=== PATIENT | female | born 1950 | race Caucasian/White ===

== ENCOUNTER 2016-09-23 09:26 | Emergency (ER) | payer MEDICARE, OTHER ==
[2016-09-23] MEDS ORDERED: TORAdol 30 mg Injection IM ONE (09:30)
[2016-09-23] MEDS ORDERED: Phenergan 25 MG INJ IM ONE (09:30)
[2016-09-23] MEDS ORDERED: Norflex 60 MG/2 ML IM ONE (09:32)
[2016-09-23] MEDS ORDERED: TORAdol 30 mg Injection ONE (09:38)
[2016-09-23] MEDS ORDERED: Phenergan 25 MG INJ ONE (09:38)
--- NOTE | 2016-09-23 09:38 | ERPHSYRPT ---
- History of Present Illness Time Seen by Provider: 09/23/16 09:30 Source: patient, family Exam Limitations: no limitations Patient Subjective Stated Complaint: PT REPORTS SEVERE BACK PAIN RADIATING DOWN LEFT LEG BEGINNING LAST NIGHT WORSENING WITH TIME-PAIN INCREASES WITH MOVEMENT- DENIES INJURY-PT RECENTLY HAD MEDICAL TESTING WITH LAYING DOWN Triage Nursing Assessment: PT PALE WARM ET [id number] ALL QUESTIONS CORRECTLY-STIFF MOVEMENTS NOTED-NO BRUISING OR ABRASIONS-PT ABLE TO BEAR WT Physician History: patient presents with marked increased lower back pain since yesterday; no falls or trauma; only recent change in activity is that she had an endoscopy procedure and colonoscopy on Friday; no fever; no travel or exposures; no change in BM or voiding or symptoms; pain in lower right back and radiates to right leg to knee; no numbness or weakness or incontinence pain 12/10; no releif with pain meds at home Timing/Duration: today (worse), yesterday (onset), gradual onset, worse Method of Injury: unknown Quality: aching Back Pain Location: lumbar spine (right side), paraspinous muscles Back Pain Radiation: upper legs (right thigh only) Severity of Pain-Max: severe Severity of Pain-Current: severe Modifying Factors: Improves With: immobilization (helps), movement (aggravates) Associated Symptoms: lower back pain, muscle spasms, No fever, No urinary incontinence, No loss of bowel control, No constipation, No vomiting, No problems urinating, No dizziness, No numbness in legs/feet, No weakness, No sensory/motor loss, No tingling in legs/feet Previous symptoms: same symptoms as today (but not as severe), recently seen Allergies/Adverse Reactions: dicloxacillin [Dicloxacillin] Allergy (Mild, Verified 09/23/16 09:32) levofloxacin [From Levaquin] Allergy (Mild, Verified 09/23/16 09:32) Penicillins Allergy (Mild, Verified 09/23/16 09:32) Sulfa (Sulfonamide Antibiotics) Allergy (Mild, Verified 09/23/16 09:32) Home Medications: Alprazolam 1 mg [Xanax 1 mg] 1 mg PO TID 08/21/12 [History] Baclofen 10 mg [Lioresal 10 mg] 10 mg PO TID 08/21/12 [History] Citalopram Hydrobromide [Celexa] 40 mg PO HS 08/21/12 [History] Potassium Chloride 10 Meq Tab* [Klor Con 10 MEQ] 10 meq PO DAILY 08/21/12 [ History] Clopidogrel Bisulfate 75 mg [PLAVIX 75 MG Tablet] 75 mg PO DAILY 09/23/16 [History] Methocarbamol [Robaxin-750] 750 mg PO UD 09/23/16 [History] Metoprolol Tartrate 25 mg [Lopressor 25MG Tab] 25 mg PO BID 09/23/16 [ History] Omeprazole 20 MG [Prilosec 20 mg] 20 mg PO DAILY 09/23/16 [History] Pravastatin Sodium [Pravachol] 80 mg PO HS 09/23/16 [History] Valsartan/Hydrochlorothiazide [Valsartan-Hctz 160-12.5 mg Tab] 1 each PO DAILY 09/23/16 [History] Vit B12/Lmefolate Ca/Vit B6/B2 [Cerefolin Tablet] 1 each PO DAILY 09/23/16 [ History] Hx Tetanus, Diphtheria Vaccination/Date Given: No Hx Influenza Vaccination/Date Given: Yes (2015) Hx Pneumococcal Vaccination/Date Given: Yes (2015) Immunizations Up to Date: Yes - Review of Systems Constitutional: No Symptoms Eyes: No Symptoms Ears, Nose, & Throat: No Symptoms Respiratory: No Cough, No Dyspnea, No Wheezing Cardiac: No Chest Pain, No Palpitations, No Syncope Abdominal/Gastrointestinal: No Abdominal Pain, No Nausea, No Vomiting, No Diarrhea, No Constipation, No Hematemesis, No Melena Genitourinary Symptoms: No Dysuria, No Frequency, No Hematuria, No Incontinence , No Urgency, No Menorrhagia Musculoskeletal: Arthralgias, Back Pain, Neck Pain (chronic old), Myalgias (hx fibromyalgia), No Fall, No Injury Skin: No Symptoms Neurological: Headache (chronic old), No Focal Weakness, No Paralysis, No Parasthesia, No Seizure, No Sensory Changes Psychological: No Symptoms Endocrine: No Symptoms Hematologic/Lymphatic: No Symptoms Immunological/Allergic: No Symptoms - Past Medical History Pertinent Past Medical History: Yes Neurological History: Other ENT History: Cataracts Cardiac History: High Cholesterol, Hypertension, Other Respiratory History: Sleep Apnea Endocrine Medical History: No Pertinent History Musculoskeletal History: Fibromyalgia, Osteoarthritis GI Medical History: No Pertinent History History: No Pertinent History Psycho-Social History: Anxiety, Depression Female Reproductive Disorders: No Pertinent History Other Medical History: HEMFACIAL SPASMS W/ BRAIN SURGERY TO FIX; AORTIC ANEURYSM ; DRY EYE - Past Surgical History Past Surgical History: Yes Neuro Surgical History: No Pertinent History Cardiac: No Pertinent History Respiratory: No Pertinent History Gastrointestinal: Appendectomy, Cholecystectomy Genitourinary: No Pertinent History Musculoskeletal: Other Female Surgical History: Hysterectomy Other Surgical History: EPIDURAL - Social History Smoking Status: Never smoker Exposure to second hand smoke: No Alcohol Use: None Drug Use: none Patient Lives Alone: No Significant Family History: no pertinent family hx - Female History Hx Now: No - Nursing Vital Signs Nursing Vital Signs: Initial Vital Signs Temperature 97.4 F 09/23/16 09:27 Pulse Rate 52 L 09/23/16 09:27 Respiratory Rate 18 09/23/16 09:27 Blood Pressure 119/72 09/23/16 09:27 O2 Sat by Pulse Oximetry 100 09/23/16 09:27 Pain Scale Pain Intensity 8 - Physical Exam General Appearance: severe distress (low back pain), alert, obese Eye Exam: PERRL/EOMI, eyes nml inspection, other (vision ok), No photophobia Ears, Nose, Throat Exam: normal ENT inspection, TMs normal, pharynx normal, moist mucous membranes Neck Exam: normal inspection, non-tender, supple, full range of motion, other ( no audible bruits), No meningismus, No JVD Respiratory Exam: normal breath sounds, lungs clear, airway intact, No chest tenderness, No respiratory distress, No rhonchi, No wheezing Cardiovascular Exam: regular rate/rhythm, normal heart sounds, normal peripheral pulses, bradycardia, capillary refill 2-3 sec, No murmur Gastrointestinal Exam: soft, normal bowel sounds, No tenderness, No mass, No guarding, No pulsatile mass, No rebound, No organomegaly Pelvic Exam: deferred Rectal Exam: deferred Back Exam: normal inspection, decreased range of motion, muscle spasm (right L/ S area), point tenderness (right paraspinous area L1-2), No normal range of motion (decreased due to low back pain), No CVA tenderness, No vertebral tenderness, No rash Extremity Exam: normal inspection, pedal edema (trace non-pitting), other ( reflexes = and normal bilateral lower extremities; sensation = and normal bilateral), No normal range of motion (decreased straigh leg raising on right due to pain at 150), No pelvis stable, No calf tenderness, No parasthesia, No paralysis, No bentley's sign Peripheral Pulses: carotid (R): 4+, carotid (L): 4+, femoral (R): 4+, femoral (L ): 4+, dorsalis-pedis (R): 3+, dorsalis-pedis (L): 3+ Neurologic Exam: alert, oriented x 3, cooperative, 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 tested, normal mood/affect, sensation nml, No nml station & gait (unable to ambulate without assistance due to pain), No motor weakness Skin Exam: normal color, warm, dry, No rash, No petechiae, No cyanosis Lymphatic Exam: No adenopathy SpO2 Interpretation: normal SpO2: 100 Oxygen Delivery: Room Air - Course Nursing assessment & vital signs reviewed: Yes - Radiology Exams L-Spine X-ray Interpretation: Interpreted by me, No Fracture, Other (mild spondylolysis with spondylolisthesis 3-4 mm L4 on L5) Ordered Tests: Active Orders 24 hr Category Date Time Status Re-Check Vital Signs STAT Care 09/23/16 09:30 Active LUMBAR LIMITED (2 OR 3 VIEWS) Stat Exams 09/23/16 09:30 Completed Medication Summary Discontinued Medications Generic Name Dose Route Start Last Admin Trade Name Alanq PRN Reason Stop Dose Admin Ketorolac Tromethamine 60 mg 09/23/16 09:30 09/23/16 10:01 Toradol 30 Mg Injection IM 09/23/16 09:31 60 mg STAT ONE Administration Ketorolac Tromethamine Confirm 09/23/16 09:38 Toradol 30 Mg Injection Administered 09/23/16 09:39 Dose 60 mg .ROUTE .STK-MED ONE Orphenadrine Citrate 60 mg 09/23/16 09:32 09/23/16 10:02 Norflex 60 Mg/2 Ml IM 09/23/16 09:33 60 mg STAT ONE Administration Orphenadrine Citrate Confirm 09/23/16 09:39 Norflex 60 Mg/2 Ml Administered 09/23/16 09:40 Dose 60 mg .ROUTE .STK-MED ONE Promethazine HCl 12.5 mg 09/23/16 09:30 09/23/16 10:01 Phenergan 25 Mg Inj IM 09/23/16 09:31 12.5 mg STAT ONE Administration Promethazine HCl Confirm 09/23/16 09:38 Phenergan 25 Mg Inj Administered 09/23/16 09:39 Dose 25 mg .ROUTE .STK-MED ONE - Progress Progress: improved (after meds), re-examined (after xr and meds) Progress Note: 09/23/16 09:42 family at bedside; treatment plan discussed; meds given; xr pending;will monitor and recheck after xr and meds 09/23/16 10:01 patient returned from XR; no change; will repsoition and give pain meds and recheck; daughter at bedside; L/S xr revealed 3-4 mm ant displacement of L4 on L5 anterior; no old xr for comparison available 09/23/16 10:20 rechecked after meds; pain now 6/10 from a 12/10; family at bedside; will recheck and monitor 09/23/16 10:46 rechecked; family at bedside; much improved; pain now 4/10; discussed follow up and instructions given; discussed home meds and ok 09/23/16 10:48 Counseled pt/family regarding: diagnosis, need for follow-up, rad results - Departure Time of Disposition: 10:47 Departure Disposition: Home Clinical Impression: Back pain at L4-L5 level, Back pain of lumbosacaral region with sciatica Condition: Stable Critical Care Time: No Referrals: NIKOLAY FERRELL [Primary Care Provider] - Instructions: Low Back Pain, Back Pain With Sciatica Additional Instructions: rest neutral position; call LMD for recheck this week; take home meds as directed Follow-up with family doctor as directed. Call for appointment. Return if any problems. If you smoke please stop. Call or follow up with your family doctor for assistance if you need it to stop. Please wear your seatbelt when driving. Have a nice day. Thank you for allowing us to participate in your care today. :o) Dr Justino Tony
[2016-09-23] MEDS ORDERED: Norflex 60 MG/2 ML ONE (09:39)
--- NOTE | 2016-09-23 10:04 | XRAY ---
Indication: Low back pain. No known injury. Comparison: None 3 views of the lumbar spine demonstrates 5 lumbar vertebral segments with mild osteopenia, minimal 4 mm L4 spondylolisthesis without spondylolysis, and bilateral L4-S1 degenerative facet arthropathy. Remaining vertebral body heights and disc spaces maintained. Incidental cholecystectomy clips and pelvic phleboliths. Impression: Nonacute lumbar spine with chronic features.
[2016-09-23 11:35] VITALS: BP 96/55; PULSE 51; O2SAT 98
== END 2016-09-23 11:34 | disposition home or self-care (01) ==
LOC: ED 09:26
DX: M54.5 Low back pain (principal); M54.32 Sciatica, left side
CPT/HCPCS: 72100; 96372; 99284; J1885; J2360; J2550

== ENCOUNTER 2018-03-25 12:23 | Day surgery (SDC) | payer MEDICARE, OTHER ==
[2018-03-25] MEDS ORDERED: Depo-Medrol 40 MG/ML IJ ONE (12:24)
[2018-03-25] MEDS ORDERED: DIPRIVAN 200 MG/20 ML IV ONE (12:24)
[2018-03-25] MEDS ORDERED: Sodium Chloride 0.9(Preservative Free) 10 ML IJ ONE (12:24)
[2018-03-25] MEDS ORDERED: Marcaine 0.5% SDV 10 ML IJ ONE (12:24)
[2018-03-25] MEDS ORDERED: Lactated Ringers 1,000 ML IV ONE (14:33)
--- NOTE | 2018-03-25 14:58 | XRAY ---
Indication: Bilateral SI joint injection. Intraoperative fluoroscopy was provided for 12 seconds. 4 digital spot images submitted for interpretation demonstrates posterior spinal needle tip projecting over the inferior left and right SI joints. Correlate with intraoperative findings/report.
--- NOTE | 2018-03-25 14:58 | XRAY ---
Indication: L4 REYNA. Intraoperative fluoroscopy was provided for 26 seconds. 3 digital spot images submitted for interpretation demonstrates posterior spinal needle tips projecting over the expected course of the left L4 and L5 nerve roots. Small amount of contrast injected for needle tip placement. Correlate with intraoperative findings/report.
--- NOTE | 2018-03-25 15:00 | XRAY ---
26 seconds of fluoroscopy was used in surgery for L4 REYNA.
--- NOTE | 2018-03-25 15:00 | XRAY ---
12 seconds of fluoroscopy was used surgery for bilateral SI joint injection.
== END 2018-03-25 14:49 | disposition home or self-care (01) ==
LOC: SDC-PAIN 12:23
PROVIDERS: ATTEND Psychiatry & Neurology Pain Medicine
DX: M53.3 Sacrococcygeal disorders, not elsewhere classified (principal); M54.16 Radiculopathy, lumbar region
CPT/HCPCS: 27096; 64483; 72020; 72202; 77002; 77003; J1030; J2704; Q9967; G0260

== ENCOUNTER 2018-04-22 09:04 | Day surgery (SDC) | payer MEDICARE, OTHER ==
[2018-04-22] MEDS ORDERED: DIPRIVAN 200 MG/20 ML IV ONE (09:05)
[2018-04-22] MEDS ORDERED: Decadron 4 MG INJ IV ONE (09:05)
[2018-04-22] MEDS ORDERED: Xylocaine 1% Vial 30 ML PF IJ ONE ×2 (09:05)
[2018-04-22] MEDS ORDERED: Xylocaine-Mpf 2% 5 Ml Vial IJ ONE (09:05)
[2018-04-22] MEDS ORDERED: Ketamine HCl 50 MG/ML IV ONE (09:05)
--- NOTE | 2018-04-22 12:09 | XRAY ---
Indication: Right C3-C5 MBB. Intraoperative fluoroscopy was provided for 22 seconds. Single frontal digital spot image submitted for interpretation demonstrates 3 posterior spinal needle tips projecting over the right mid cervical spine, difficult to evaluate the levels. Incidental overlying dental amalgams. Correlate with intraoperative findings/report.
--- NOTE | 2018-04-22 12:11 | XRAY ---
22 seconds fluoroscopy time in surgery for right C3-C5 MBB.
[2018-04-22] MEDS ORDERED: Lactated Ringers 1,000 ML IV ONE (14:29)
== END 2018-04-22 12:00 | disposition home or self-care (01) ==
LOC: SDC-PAIN 09:04
PROVIDERS: ATTEND Psychiatry & Neurology Pain Medicine
DX: M47.812 Spondylosis without myelopathy or radiculopathy, cervical region (principal); I10 Essential (primary) hypertension; Z79.899 Other long term (current) drug therapy
CPT/HCPCS: 64490; 64491; 72020; 77002; 99100; J1100; J2001; J2704

== ENCOUNTER 2018-09-04 09:35 | Inpatient (IN) | payer MEDICARE, OTHER ==
[2018-09-04] MEDS ORDERED: Aplisol ID ONE (12:00)
[2018-09-04] MEDS ORDERED: CALCIUM CARBONATE 1000 MG PO PRN (15:12)
[2018-09-04] MEDS ORDERED: CLARITIN 10 MG PO PRN (15:12)
[2018-09-04] MEDS ORDERED: METHOCARBAMOL PO PRN (15:12)
[2018-09-04] MEDS: Norco 10/325 MG Tablet PO PRN ×2 (15:13→19:28)
[2018-09-04] MEDS ORDERED: Robaxin 500 MG PO PRN (15:19)
[2018-09-04] MEDS ORDERED: MEDICATION INTERVENTION PO SCH (15:30)
--- NOTE | 2018-09-04 17:11 | PCM.HP ---
History of Present Illness - Chief Complaint Chief Complaint: DECONDITIONING R/T TOTAL RIGHT KNEE History of Present Illness: is a 68 year old female pt of mine from [facility] with PMHx OA, goiter, HTN , CAD, hyperlipidemia, aortic aneurysm, fibromyalgia who comes to [facility] with deconditioning, in swing bed, after total knee arthroplasty. Surgery was on her R knee 3d ago wtih Dr. Horowitz. She was at [facility] and had afib during the surgery - pt with no hx afib. Sounds like she was cardioverted there but was hypotensive and was resuscitated with IV fluids. Hgb was 8.8 so is now on iron. Since then she has been doing therapy, has been walking in the erazo with assistance. She is tolerating po but her appetite is decreased. Has not had a BM since surgery. Has been getting stool softeners. vomited up Miralax this morning. Is on Linzesse at home. - Review of Systems Abdominal/Gastrointestinal: Constipation, Appetite Changes Musculoskeletal: Arthralgias, Neck Pain, Joint Redness (this p.m. which was marked on her skin; thinks from the sun), Joint Pain Neurological: Dizziness, Gait Changes Hematologic/Lymphatic: Anemia All Other Systems: Reviewed and Negative Medications & Allergies Home Medications: Home Medication List Alprazolam 1 mg [Xanax 1 mg] 1 mg PO BIDPRN PRN 08/21/12 [History Confirmed 09/04/18] Citalopram Hydrobromide [Celexa] 40 mg PO HS 08/21/12 [History Confirmed ] Potassium Chloride 10 Meq Tab* [Klor Con 10 MEQ] 10 meq PO DAILY 08/21/12 [ History Confirmed 09/04/18] Clopidogrel Bisulfate 75 mg [PLAVIX 75 MG Tablet] 75 mg PO DAILY 09/23/16 [History Confirmed 09/04/18] Methocarbamol [Robaxin-750] 1 - 2 tab PO TIDPRN PRN 09/23/16 [History Confirmed 09/04/18] Omeprazole 20 MG [Prilosec 20 mg] 20 mg PO DAILY 09/23/16 [History Confirmed 07/19] Pravastatin Sodium [Pravachol] 80 mg PO HS 09/23/16 [History Confirmed 09/04/18] Valsartan/Hydrochlorothiazide [Valsartan-Hctz 160-12.5 mg Tab] 1 each PO DAILY 09/23/16 [History Confirmed 09/04/18] Donepezil HCl 10 mg [Aricept 10 MG] 10 mg PO DAILY 08/23/18 [History Confirmed 09/04/18] Fesoterodine Fumarate [Toviaz] 8 mg PO DAILY 08/23/18 [History Confirmed ] Calcium Carbonate 1,000 mg PO TIDPRN PRN 09/04/18 [History Confirmed 09/04/18] Docusate Sodium [Colace] 300 mg PO DAILY 09/04/18 [History Confirmed 09/04/18] Eb-C3 1 tab PO DAILY 09/04/18 [History Confirmed 09/04/18] Ferrous Sulfate 325 mg PO BID 09/04/18 [History Confirmed 09/04/18] Hydrocodone Bit/Acetaminophen [Hydrocodon-Acetaminophn 10-325] 1 each PO Q4HPRN PRN 09/04/18 [History Confirmed 09/04/18] Levothyroxine Sodium 150 Mcg [Synthroid 150 Mcg] 150 mcg PO 0600 09/04/18 [ History Confirmed 09/04/18] Loratadine 10 mg [Claritin 10 mg] 10 mg PO DAILY PRN PRN 09/04/18 [ History Confirmed 09/04/18] Allergies/Adverse Reactions: Allergies Allergy/AdvReac Type Severity Reaction Status Date / Time dicloxacillin [Dicloxacillin] Allergy Mild Verified 09/04/18 14:09 levofloxacin [From Levaquin] Allergy Mild Verified 09/04/18 14:09 Penicillins Allergy Mild Verified 09/04/18 14:09 Sulfa (Sulfonamide Allergy Mild Verified 09/04/18 14:09 Antibiotics) - Past Medical History Past Medical History: Yes Neurological History: Stroke, Other ENT History: Cataracts Cardiac History: High Cholesterol, Hypertension Respiratory History: No Pertinent History Endocrine Medical History: No Pertinent History Musculoskelatal History: Osteoarthritis, Other GI Medical History: GERD, Hernia, Other History: No Pertinent History Pyscho-Social History: Anxiety, Depression Reproductive Disorders: No Pertinent History Comment: Torn mensicus left knee with repair 2006. Brain surgery 2016 for hemifacial spasm. Cholecystectomy 2015, Achilles tendon repair right, heel spur surgery both feet, neuroma removal right foot x 2, total hysterectomy, Stroke 2013 without residual. Also on medication for dementia., esophageal spasms - Female History Are you now?: No - Past Surgical History Past Surgical History: Yes Neuro Surgical History: No Pertinent History Cardiac History: No Pertinent History Respiratory Surgery: No Pertinent History GI Surgical History: Cholecystectomy Genitourinary Surgical Hx: No Pertinent History Musculskeletal Surgical Hx: Joint Replacement, Other Female Surgical History: Hysterectomy Other Surgical History: EPIDURAL, thyroidectomy. Torn mensicus left knee with repair 2006. Brain surgery 2016 for hemifacial spasm. Cholecystectomy 2015, Achilles tendon repair right, heel spur surgery both feet, neuroma removal right foot x 2, total hysterectomy. RIGHT KNEE CYST - Social History Smoking Status: Never smoker Exposure to second hand smoke: No Alcohol: None Drug Use: none Significant Family History: no pertinent family hx - Physical Exam Vital Signs: Vital Signs - 24 hr Temp Pulse Resp BP Pulse Ox 09/04/18 13:20 97.7 F 59 L 16 110/59 92 L General Appearance: no apparent distress, alert Neurologic Exam: oriented x 3, cooperative Eye Exam: eyes nml inspection Ears, Nose, Throat Exam: moist mucous membranes Neck Exam: normal inspection Respiratory Exam: normal breath sounds, lungs clear, No crackles/rales, No rhonchi, No wheezing Cardiovascular Exam: regular rate/rhythm, normal heart sounds, No murmur Gastrointestinal/Abdomen Exam: soft, normal bowel sounds, No tenderness, No distention, No mass, No guarding, No rebound Back Exam: normal inspection, No rash Extremity Exam: other (RLE with clean/dry dressing on anterior knee. No erythema, no lesions. motor intact grossly throughout) Assessment/Plan (1) Physical deconditioning Current Visit: Yes Status: Acute Assessment & Plan: Here for PT Code(s): R53.81 - OTHER MALAISE (2) History of total knee arthroplasty Current Visit: Yes Status: Acute Qualifiers: Laterality: right Qualified Code(s): Z96.651 - Presence of right artificial knee joint Assessment & Plan: POD #3. Code(s): Z96.659 - PRESENCE OF UNSPECIFIED ARTIFICIAL KNEE JOINT (3) Anemia Current Visit: Yes Status: Acute Qualifiers: Anemia type: iron deficiency Iron deficiency anemia type: unspecified iron deficiency Qualified Code(s): D50.9 - Iron deficiency anemia, unspecified Assessment & Plan: recheck in a.m. Hgb 8.8 in hospital per pt report (pt is reliable). Code(s): D64.9 - ANEMIA, UNSPECIFIED (4) Constipation Current Visit: Yes Status: Chronic Qualifiers: Constipation type: slow transit constipation Qualified Code(s): K59.01 - Slow transit constipation Assessment & Plan: try dulcolax suppository in the morning. She can also resume her home linzesse. Code(s): K59.00 - CONSTIPATION, UNSPECIFIED (5) HTN (hypertension) Current Visit: Yes Status: Acute Qualifiers: Hypertension type: essential hypertension Qualified Code(s): I10 - Essential (primary) hypertension Assessment & Plan: With hx aortic aneurism; will continue to monitor. Great so far. Code(s): I10 - ESSENTIAL (PRIMARY) HYPERTENSION
[2018-09-04] MEDS: FEOSOL 325 MG PO SCH (21:09)
[2018-09-04] MEDS: ceLEXa 20 MG PO SCH (21:10)
[2018-09-04] MEDS: ZOCOR 20MG PO SCH (21:11)
[2018-09-04] MEDS: XANAX 1 MG PO PRN (21:17)
[2018-09-04] MEDS ORDERED: NON-FORMULARY ITEM (Pravastatin Sodium [Pravachol] 80 MG) PO SCH (22:00)
[2018-09-04] MEDS ORDERED: NON-FORMULARY ITEM (Citalopram Hydrobromide [Celexa] 40 MG) PO SCH (22:00)
[2018-09-05] MEDS: Norco 10/325 MG Tablet PO PRN ×5 (00:37→20:34)
[2018-09-05 04:46] LABS: Hematocrit 24.1 % (35-47); Hemoglobin 7.6 gm/dl (12.0-16.0); Mean Corpuscular Hgb Concent. 31.5 g/dl (32-36); Mean Platelet Volume 9.6 fl (6-9.5); Platelet Count 169 K/mm3 (150-450); Red Blood Count 2.62 M/mm3 (4.1-5.4); Red Cell Distribution Width 13.4 % (11.5-14.0); White Blood Count 4.1 K/mm3 (4.0-10.5)
[2018-09-05] MEDS: SYNTHROID 150 MCG PO SCH (06:02)
[2018-09-05] MEDS ORDERED: Dulcolax 10 MG SUPP PR PRN (10:00)
[2018-09-05] MEDS ORDERED: NON-FORMULARY ITEM (Omeprazole 20 Mg [Prilosec 20 Mg] 20 MG) PO SCH (10:00)
[2018-09-05] MEDS ORDERED: [UNRECOGNIZED DRUG - OTHER] PO SCH (10:00)
[2018-09-05] MEDS ORDERED: FESOTERODINE FUMARATE 8 MG PO SCH (10:00)
[2018-09-05] MEDS: Colace 100 MG PO SCH (10:07)
[2018-09-05] MEDS: Aricept 10 MG PO SCH (10:07)
[2018-09-05] MEDS: PLAVIX 75 MG Tablet PO SCH (10:08)
[2018-09-05] MEDS: Protonix 40MG Tablet PO SCH (10:08)
[2018-09-05] MEDS: Klor Con 10 MEQ PO SCH (10:08)
[2018-09-05] MEDS: FEOSOL 325 MG PO SCH ×2 (10:08→21:19)
[2018-09-05] MEDS: Ditropan 5 MG PO SCH ×2 (10:08→21:18)
--- NOTE | 2018-09-05 13:11 | PCM.NOTE ---
Date and Time: 09/05/18 1310 Subjective Assessment: patient seen, doing ok - Review of Systems Constitutional: No Fever, No Chills Eyes: No Symptoms Ears, Nose, & Throat: No Symptoms Respiratory: No Cough, No Short Of Breath Cardiac: No Chest Pain, No Edema, No Syncope Abdominal/Gastrointestinal: No Abdominal Pain, No Nausea, No Vomiting, No Diarrhea Genitourinary Symptoms: No Dysuria Musculoskeletal: Joint Pain, No Back Pain, No Neck Pain Skin: No Rash Neurological: No Dizziness, No Focal Weakness, No Sensory Changes Psychological: No Symptoms Endocrine: No Symptoms Hematologic/Lymphatic: No Symptoms Immunological/Allergic: No Symptoms Objective Exam General Appearance: no apparent distress, alert Neurologic Exam: alert, oriented x 3, cooperative, normal mood/affect, nml cerebellar function, sensation nml, No motor deficits Skin Exam: normal color, warm, dry Eye Exam: PERRL, EOMI, eyes nml inspection Ears, Nose, Throat Exam: normal ENT inspection, pharynx normal, moist mucous membranes Neck Exam: normal inspection, non-tender, supple, full range of motion Respiratory Exam: normal breath sounds, lungs clear, No respiratory distress Cardiovascular Exam: regular rate/rhythm, normal heart sounds Gastrointestinal/Abdomen Exam: soft, No tenderness, No mass Extremity Exam: normal inspection, normal range of motion Back Exam: normal inspection, normal range of motion, No CVA tenderness, No vertebral tenderness Pelvic Exam: deferred Rectal Exam: deferred OBJECTIVE DATA Vital Signs: Vital Signs - 24 hr Temp Pulse Resp BP Pulse Ox 09/05/18 07:12 97.6 F 54 L 18 103/53 97 09/04/18 19:56 97.6 F 64 18 101/54 98 09/04/18 13:20 97.7 F 59 L 16 110/59 92 L Pain Assessment - Last Documented Pain Intensity 5 Pain Scale Used 0-10 Pain Scale Intake and Output: Intake & Output 09/03/18 09/04/18 09/05/18 09/06/18 11:59 11:59 11:59 11:59 Intake Total 1840 Balance 1840 Weight 112.9 kg Lab Results: Lab Results-Last 24 Hours 09/05/18 Range/Units 04:44 WBC 4.1 (4.0-10.5) K/mm3 RBC 2.62 L (4.1-5.4) M/mm3 Hgb 7.6 L (12.0-16.0) gm/dl Hct 24.1 L (35-47) % MCV 92.0 (78-100) fl MCH 29.0 (26-32) pg MCHC 31.5 L (32-36) g/dl RDW 13.4 (11.5-14.0) % Plt Count 169 (150-450) K/mm3 MPV 9.6 H (6-9.5) fl Multi-Disciplinary Progress Notes: Multi-Disciplinary Progress Notes 09/04/18 15:18 Pharmacy Note by Jp Navarro Please be aware of possible drug interaction with Celexa and Aricept. May prolong QT interval. Both are home meds. Initialized on 09/04/18 15:18 - END OF NOTE Assessment/Plan (1) Physical deconditioning Current Visit: Yes Status: Acute Assessment & Plan: Last Vital Signs Temp 97.6 F 09/05/18 07:12 Pulse 54 L 09/05/18 07:12 Resp 18 09/05/18 07:12 BP 103/53 09/05/18 07:12 Pulse Ox 97 09/05/18 07:12 Allergies dicloxacillin [Dicloxacillin] Allergy (Mild, Verified 09/04/18 14:09) levofloxacin [From Levaquin] Allergy (Mild, Verified 09/04/18 14:09) Penicillins Allergy (Mild, Verified 09/04/18 14:09) Sulfa (Sulfonamide Antibiotics) Allergy (Mild, Verified 09/04/18 14:09) Active Medications Hydrocodone Bitart/Acetaminophen ([place] 10/325 Mg Tablet) 1 tab PO Q4H PRN PRN PRN Reason: PAIN Stop: 09/09/18 15:08 Last Admin: 09/05/18 11:44 Dose: 1 tab Alprazolam (Xanax 1 Mg) 1 mg PO BIDPRN PRN PRN Reason: ANXIETY Stop: 10/04/18 15:11 Last Admin: 09/04/18 21:17 Dose: 1 mg Bisacodyl (Dulcolax 10 Mg Supp) 10 mg OK QDP PRN PRN Reason: CONSTIPATION Stop: 10/05/18 09:59 Calcium Carbonate/Glycine (Tums Ex 750 Mg) 750 mg PO TID PRN PRN PRN Reason: INDIGESTION Stop: 10/04/18 15:20 Citalopram Hydrobromide (Celexa 20 Mg) 40 mg PO HS TIANA Stop: 10/04/18 21:59 Last Admin: 09/04/18 21:10 Dose: 40 mg Clopidogrel Bisulfate (Plavix 75 Mg Tablet) 75 mg PO DAILY TIANA Stop: 10/05/18 09:59 Last Admin: 09/05/18 10:08 Dose: 75 mg Docusate Sodium (Colace 100 Mg) 300 mg PO DAILY TIANA Stop: 10/05/18 09:59 Last Admin: 09/05/18 10:07 Dose: 300 mg Donepezil HCl (Aricept 10 Mg) 10 mg PO DAILY TIANA Stop: 10/05/18 09:59 Last Admin: 09/05/18 10:07 Dose: 10 mg Ferrous Sulfate (Feosol 325 Mg) 325 mg PO BID TIANA Stop: 10/04/18 21:59 Last Admin: 09/05/18 10:08 Dose: 325 mg Levothyroxine Sodium (Synthroid 150 Mcg) 150 mcg PO 0600 TIANA Stop: 10/05/18 05:59 Last Admin: 09/05/18 06:02 Dose: 150 mcg Loratadine (Claritin 10 Mg) 10 mg PO DAILY PRN PRN PRN Reason: ALLERGIES Stop: 10/04/18 15:11 Methocarbamol (Robaxin 500 Mg) 0 mg PO TID PRN PRN PRN Reason: PAIN Stop: 10/04/18 15:18 Miscellaneous Information (Medication Intervention) 1 each PO .RN TO CHECK ON TIANA Stop: 10/04/18 15:29 Oxybutynin Chloride (Ditropan 5 Mg) 5 mg PO BID TIANA Stop: 10/05/18 09:59 Last Admin: 09/05/18 10:08 Dose: 5 mg Pantoprazole Sodium (Protonix 40mg Tablet) 40 mg PO DAILY TIANA Stop: 10/05/18 09:59 Last Admin: 09/05/18 10:08 Dose: 40 mg Potassium Chloride (Klor Con 10 Meq) 10 meq PO DAILY TIANA Stop: 10/05/18 09:59 Last Admin: 09/05/18 10:08 Dose: 10 meq Simvastatin (Zocor 20mg) 80 mg PO HS TIANA Stop: 10/04/18 21:59 Last Admin: 09/04/18 21:11 Dose: 80 mg Intake & Output 09/05/18 09/06/18 11:59 11:59 Intake Total 1840 Balance 1840 Weight 112.9 kg Lab Tests 09/05/18 04:44 WBC 4.1 RBC 2.62 L Hgb 7.6 L Hct 24.1 L MCV 92.0 MCH 29.0 MCHC 31.5 L RDW 13.4 Plt Count 169 MPV 9.6 H Code(s): R53.81 - OTHER MALAISE (2) History of total knee arthroplasty Current Visit: Yes Status: Acute Qualifiers: Laterality: right Qualified Code(s): Z96.651 - Presence of right artificial knee joint Code(s): Z96.659 - PRESENCE OF UNSPECIFIED ARTIFICIAL KNEE JOINT (3) HTN (hypertension) Current Visit: Yes Status: Acute Qualifiers: Hypertension type: essential hypertension Qualified Code(s): I10 - Essential (primary) hypertension Code(s): I10 - ESSENTIAL (PRIMARY) HYPERTENSION
[2018-09-05] MEDS: ceLEXa 20 MG PO SCH (21:18)
[2018-09-05] MEDS: ZOCOR 20MG PO SCH (21:19)
[2018-09-05] MEDS: XANAX 1 MG PO PRN (21:21)
[2018-09-06] MEDS: Norco 10/325 MG Tablet PO PRN ×5 (01:27→20:14)
[2018-09-06 04:52] LABS: Hematocrit 25.2 % (35-47); Hemoglobin 7.8 gm/dl (12.0-16.0); Mean Cell Volume 92.3 fl (78-100); Mean Platelet Volume 9.6 fl (6-9.5); Platelet Count 192 K/mm3 (150-450); Red Blood Count 2.73 M/mm3 (4.1-5.4); Red Cell Distribution Width 13.5 % (11.5-14.0); White Blood Count 4.2 K/mm3 (4.0-10.5)
[2018-09-06 04:55] LABS: Mean Corpuscular Hemoglobin 28.5 pg (26-32)
[2018-09-06] MEDS: SYNTHROID 150 MCG PO SCH (06:47)
[2018-09-06] MEDS: Aricept 10 MG PO SCH (09:24)
[2018-09-06] MEDS: Colace 100 MG PO SCH (09:24)
[2018-09-06] MEDS: Ditropan 5 MG PO SCH ×2 (09:25→21:10)
[2018-09-06] MEDS: FEOSOL 325 MG PO SCH ×2 (09:25→21:10)
[2018-09-06] MEDS: PLAVIX 75 MG Tablet PO SCH (09:25)
[2018-09-06] MEDS: Klor Con 10 MEQ PO SCH (09:25)
[2018-09-06] MEDS: Protonix 40MG Tablet PO SCH (09:26)
[2018-09-06] MEDS: ZOCOR 20MG PO SCH (21:10)
[2018-09-06] MEDS: XANAX 1 MG PO PRN (21:11)
[2018-09-06] MEDS: ceLEXa 20 MG PO SCH (21:11)
[2018-09-07] MEDS: Norco 10/325 MG Tablet PO PRN ×5 (01:00→19:29)
[2018-09-07] MEDS: SYNTHROID 150 MCG PO SCH (06:11)
[2018-09-07 07:55] LABS: Hematocrit 30.1 % (35-47); Hemoglobin 9.4 gm/dl (12.0-16.0); Mean Cell Volume 91.8 fl (78-100); Mean Corpuscular Hgb Concent. 31.2 g/dl (32-36); Mean Platelet Volume 9.7 fl (6-9.5); Platelet Count 268 K/mm3 (150-450); Red Blood Count 3.28 M/mm3 (4.1-5.4); White Blood Count 5.5 K/mm3 (4.0-10.5)
[2018-09-07 08:03] LABS: Mean Corpuscular Hemoglobin 28.6 pg (26-32)
[2018-09-07 08:29] LABS: BAND 1 % (0.0-2.0); Eosinophil 7 % (0.00-3.0); Lymphocytes 22 % (24-44); Monocyte 3 % (0.0-12.0); Neutrophils 67 % (36.0-66.0); Nucleated Red Blood Cell 4 %; Total Cells Counted 100
[2018-09-07 08:30] LABS: ANISOCYTOSIS 1+; Platelet Estimate NORMAL (NORMAL); Toxic Granulation 1+
[2018-09-07] MEDS ORDERED: DIFLUCAN PO SCH (09:00)
[2018-09-07] MEDS: Colace 100 MG PO SCH (09:01)
[2018-09-07] MEDS: PLAVIX 75 MG Tablet PO SCH (09:02)
[2018-09-07] MEDS: Klor Con 10 MEQ PO SCH (09:02)
[2018-09-07] MEDS: Aricept 10 MG PO SCH (09:02)
[2018-09-07] MEDS: Protonix 40MG Tablet PO SCH (09:02)
[2018-09-07] MEDS: Ditropan 5 MG PO SCH ×2 (09:02→20:37)
[2018-09-07] MEDS: FEOSOL 325 MG PO SCH ×2 (09:02→20:37)
[2018-09-07 10:21] LABS: Appearance CLEAR (CLEAR); Bilirubin NEGATIVE (NEGATIVE); Blood NEGATIVE Ery/ul (0-5); Epithelial Cells RARE /HPF (FEW); Glucose NEGATIVE (NEGATIVE); Ketones NEGATIVE (NEGATIVE); Leukocyte Esterase NEGATIVE (NEGATIVE); Mucus SLIGHT /HPF (NEGATIVE); Nitrite NEGATIVE (NEGATIVE); Protein,Urine Dip NEGATIVE (Negative); RBC 0-2 /HPF (0-2); Specific Gravity 1.014 (1.005-1.025); Urobilinogen NEGATIVE mg/dL (0-1)
[2018-09-07] MEDS: ceLEXa 20 MG PO SCH (20:37)
[2018-09-07] MEDS: ZOCOR 20MG PO SCH (20:37)
[2018-09-07] MEDS: XANAX 1 MG PO PRN (20:40)
[2018-09-08] MEDS: Norco 10/325 MG Tablet PO PRN ×5 (02:02→20:10)
[2018-09-08] MEDS: SYNTHROID 150 MCG PO SCH (06:04)
[2018-09-08] MEDS: Aricept 10 MG PO SCH (09:28)
[2018-09-08] MEDS: FEOSOL 325 MG PO SCH ×2 (09:29→21:04)
[2018-09-08] MEDS: Klor Con 10 MEQ PO SCH (09:29)
[2018-09-08] MEDS: Colace 100 MG PO SCH (09:29)
[2018-09-08] MEDS: PLAVIX 75 MG Tablet PO SCH (09:29)
[2018-09-08] MEDS: Ditropan 5 MG PO SCH ×2 (09:29→21:05)
[2018-09-08] MEDS: Protonix 40MG Tablet PO SCH (09:30)
[2018-09-08] MEDS: ZOCOR 20MG PO SCH (21:04)
[2018-09-08] MEDS: ceLEXa 20 MG PO SCH (21:05)
[2018-09-08] MEDS: XANAX 1 MG PO PRN (21:06)
[2018-09-09] MEDS: Norco 10/325 MG Tablet PO PRN ×4 (02:07→21:58)
[2018-09-09] MEDS: SYNTHROID 150 MCG PO SCH (06:52)
[2018-09-09] MEDS: Colace 100 MG PO SCH (08:29)
[2018-09-09] MEDS: Aricept 10 MG PO SCH (08:29)
[2018-09-09] MEDS: FEOSOL 325 MG PO SCH ×2 (08:30→22:00)
[2018-09-09] MEDS: Ditropan 5 MG PO SCH ×2 (08:30→21:59)
[2018-09-09] MEDS: Protonix 40MG Tablet PO SCH (08:30)
[2018-09-09] MEDS: PLAVIX 75 MG Tablet PO SCH (08:30)
[2018-09-09] MEDS: Klor Con 10 MEQ PO SCH (08:30)
--- NOTE | 2018-09-09 08:58 | PCM.NOTE ---
Date and Time: 09/09/18 0856 Subjective Assessment: She is doing well with therapy, thinks she may want to go home tomorrow. Madyson po. Having good BMs. Objective Exam General Appearance: no apparent distress, alert, obese Neurologic Exam: oriented x 3, cooperative Skin Exam: normal color, warm, dry, No rash Respiratory Exam: normal breath sounds, lungs clear, No crackles/rales, No rhonchi, No wheezing Cardiovascular Exam: regular rate/rhythm, normal heart sounds, No murmur Gastrointestinal/Abdomen Exam: soft, normal bowel sounds, No tenderness, No distention, No mass, No guarding, No rebound Extremity Exam: other (dressing on R knee with some evidence of dried blood), No swelling OBJECTIVE DATA Vital Signs: Vital Signs - 24 hr Temp Pulse Resp BP Pulse Ox 09/09/18 07:08 97.4 F 67 20 136/63 97 09/08/18 20:00 97.9 F 62 18 111/52 94 L Pain Assessment - Last Documented Pain Intensity 4 Pain Scale Used 0-10 Pain Scale Intake and Output: Intake & Output 09/06/18 09/07/18 09/08/18 09/09/18 11:59 11:59 11:59 11:59 Intake Total 5447 610 7765 900 Balance 5510 279 1450 900 Weight 112.9 kg Assessment/Plan (1) Physical deconditioning Current Visit: Yes Status: Acute Assessment & Plan: much better. home tomorrow. Code(s): R53.81 - OTHER MALAISE (2) History of total knee arthroplasty Current Visit: Yes Status: Acute Qualifiers: Laterality: right Qualified Code(s): Z96.651 - Presence of right artificial knee joint Assessment & Plan: doing great. sees ortho in 2d. Code(s): Z96.659 - PRESENCE OF UNSPECIFIED ARTIFICIAL KNEE JOINT (3) Anemia Current Visit: Yes Status: Acute Qualifiers: Anemia type: iron deficiency Iron deficiency anemia type: unspecified iron deficiency Qualified Code(s): D50.9 - Iron deficiency anemia, unspecified Assessment & Plan: improved; hgb 2d ago was 9.4. Code(s): D64.9 - ANEMIA, UNSPECIFIED (4) Constipation Current Visit: Yes Status: Resolved Qualifiers: Constipation type: slow transit constipation Qualified Code(s): K59.01 - Slow transit constipation Code(s): K59.00 - CONSTIPATION, UNSPECIFIED (5) HTN (hypertension) Current Visit: Yes Status: Chronic Qualifiers: Hypertension type: essential hypertension Qualified Code(s): I10 - Essential (primary) hypertension Code(s): I10 - ESSENTIAL (PRIMARY) HYPERTENSION
[2018-09-09] MEDS: Tums EX 750 MG PO PRN ×2 (10:32→20:42)
[2018-09-09] MEDS: ZOCOR 20MG PO SCH (21:59)
[2018-09-09] MEDS: ceLEXa 20 MG PO SCH (21:59)
[2018-09-09] MEDS: XANAX 1 MG PO PRN (22:00)
[2018-09-10] MEDS: Norco 10/325 MG Tablet PO PRN ×2 (03:55→09:04)
[2018-09-10] MEDS: SYNTHROID 150 MCG PO SCH (05:34)
[2018-09-10 06:52] VITALS: BP 132/63; PULSE 51; O2SAT 99
--- NOTE | 2018-09-10 08:18 | PCM.DS ---
Discharge Summary Date of Admission: 09/04/18 13:05 Admitting Physician: NIKOLAY FERRELL Primary Care Provider: NIKOLAY FERRELL Allergies Allergies dicloxacillin [Dicloxacillin] Allergy (Mild, Verified 09/04/18 14:09) levofloxacin [From Levaquin] Allergy (Mild, Verified 09/04/18 14:09) Penicillins Allergy (Mild, Verified 09/04/18 14:09) Sulfa (Sulfonamide Antibiotics) Allergy (Mild, Verified 09/04/18 14:09) Hospital Summary - Hospital Course Hospital Course: Pt is a 68 female pt of mine from [facility] with OA, HTN, CAD, hyperlipidemia, goiter , aortic aneurism, and fibromyalgia who came to [facility] on POD #3 s/p total knee arthroplasty on the R (by Dr. Horowitz). Her hgb had been 8.8 at [facility] and here got down to 7.6. She did not require a transfusion. On recheck hgb was 9.4. She has not had any symptomatic bleeding. She did have some constipation which has resolved. She has been tolerating well. Doing well in therapy. She has been taking norco q4h while awake. Would like to go home today; is up out of bed and walking on her own. Will discharge her to home. She has a f/u appt with Dr. Horowitz tomorrow. Will send her home on po norco, just a short script until she sees Dr. Horowitz, although I a happy to write a longer rx if he would prefer not to. - Vitals & Intake/Output Vital Signs: Vital Signs Temperature 98.2 F 09/10/18 06:51 Pulse Rate 51 L 09/10/18 06:51 Respiratory Rate 20 09/10/18 06:51 Blood Pressure 132/63 09/10/18 06:51 O2 Sat by Pulse Oximetry 99 09/10/18 06:51 Intake & Output: Intake & Output 09/07/18 09/08/18 09/09/18 09/10/18 11:59 11:59 11:59 11:59 Intake Total 100 1240 1140 720 Balance 100 1240 1140 720 - Lab Result Diagrams: 09/07/18 07:40 - Procedures and Test Procedures and Tests throughout Hospitalization: Therapy Orders & Screens 09/04/18 12:00 PT Eval & Treat (MD Order) ROUTINE Reason for Eval:: TOTAL R KNEE REPLACEMENT Diagnosis: DECONDITIONING R/T TOTAL R KNEE REPLACEMENT 09/04/18 13:52 OT Screen per Nursing Assess Comment: Protocol Order Physician Instructions: Greater than 3 points order OT Admission Screening Reason For Exam: Triggered on Admission Diagnosis: DECONDITIONING R/T TOTAL RIGHT KNEE Open Wound/Cellutlitis/Pressure Ulcers: No Acute Fx/ORIF/Change in wt bearing status: No Severe MUSCULOSKELETAL pain: No ADL Dysfunction: No Acute CVA w/Hemiparesis/Hemiplegia: No Decreased Functional Mobility/Strength: Yes Sprain/Strain: No Acute Post-op Mobility Dysfunction: Yes Total Points: 4 PT Screen per Nursing Assess Comment: Protocol Order Physician Instructions: Greater than 3 points order PT Admission Screenin Reason For Exam: Triggered on Admission Diagnosis: DECONDITIONING R/T TOTAL RIGHT KNEE Open Wound/Cellutlitis/Pressure Ulcers: No Acute Fx/ORIF/Change in wt bearing status: No Severe MUSCULOSKELETAL pain: No ADL Dysfunction: No Acute CVA w/Hemiparesis/Hemiplegia: No Decreased Functional Mobility/Strength: Yes Sprain/Strain: No Acute Post-op Mobility Dysfunction: Yes Total Points: 4 Discharge Exam General Appearance: no apparent distress, alert, obese Neurologic Exam: oriented x 3, cooperative Eye Exam: eyes nml inspection Ears, Nose, Throat Exam: moist mucous membranes Neck Exam: normal inspection Respiratory Exam: normal breath sounds, lungs clear, No crackles/rales, No rhonchi, No wheezing Cardiovascular Exam: regular rate/rhythm, normal heart sounds, No murmur Extremity Exam: other (RLE dressing with no new bleeding noted. RLE with some generalized edema, no pitting, no erythema.) Final Diagnosis/Problem List - Final Discharge Diagnosis/Problem (1) Physical deconditioning Current Visit: Yes Status: Acute Assessment & Plan: Much improved - will send her home. she should continue her therapy. Code(s): R53.81 - OTHER MALAISE (2) History of total knee arthroplasty Current Visit: Yes Status: Acute Assessment & Plan: Doing great. INSPECT is appropriate today; she did fill a xanax rx in August 2018 , appears to use it irregularly, will warn her not to use with the norco and will use norco the shortest possible time. Code(s): Z96.659 - PRESENCE OF UNSPECIFIED ARTIFICIAL KNEE JOINT (3) Anemia Current Visit: Yes Status: Acute Assessment & Plan: much improved. will check outpatient when she returns to clinic. Code(s): D64.9 - ANEMIA, UNSPECIFIED (4) Constipation Current Visit: Yes Status: Resolved Code(s): K59.00 - CONSTIPATION, UNSPECIFIED (5) HTN (hypertension) Current Visit: Yes Status: Chronic Code(s): I10 - ESSENTIAL (PRIMARY) HYPERTENSION - Discharge Disposition: Home, Self-Care Condition: Good Prescriptions: Continue Alprazolam 1 mg [Xanax 1 mg] 1 mg PO BIDPRN PRN PRN Reason: ANXIETY Potassium Chloride 10 Meq Tab* [Klor Con 10 MEQ] 10 meq PO DAILY Citalopram Hydrobromide [Celexa] 40 mg PO HS Omeprazole 20 MG [Prilosec 20 mg] 20 mg PO DAILY Pravastatin Sodium [Pravachol] 80 mg PO HS Clopidogrel Bisulfate 75 mg [PLAVIX 75 MG Tablet] 75 mg PO DAILY Methocarbamol [Robaxin-750] 1 - 2 tab PO TIDPRN PRN PRN Reason: Pain Valsartan/Hydrochlorothiazide [Valsartan-Hctz 160-12.5 mg Tab] 1 each PO DAILY Donepezil HCl 10 mg [Aricept 10 MG] 10 mg PO DAILY Fesoterodine Fumarate [Toviaz] 8 mg PO DAILY Loratadine 10 mg [Claritin 10 mg] 10 mg PO DAILY PRN PRN PRN Reason: Allergies Levothyroxine Sodium 150 Mcg [Synthroid 150 Mcg] 150 mcg PO 0600 Docusate Sodium [Colace] 300 mg PO DAILY Calcium Carbonate 1,000 mg PO TIDPRN PRN PRN Reason: Indigestion Ferrous Sulfate 325 mg PO BID Eb-C3 1 tab PO DAILY Hydrocodone Bit/Acetaminophen [Hydrocodon-Acetaminophn 10-325] 1 each PO Q4HPRN PRN #12 tablet PRN Reason: Pain Additional Instructions: DO NOT take xanax and norco within several hours of each other due to risk of respiratory depression. Only take norco when needed. Follow up with: NIKOLAY FERRELL [Primary Care Provider] - 1 Week
[2018-09-10] MEDS: Aricept 10 MG PO SCH (09:05)
[2018-09-10] MEDS: Ditropan 5 MG PO SCH (09:05)
[2018-09-10] MEDS: Klor Con 10 MEQ PO SCH (09:05)
[2018-09-10] MEDS: Colace 100 MG PO SCH (09:05)
[2018-09-10] MEDS: PLAVIX 75 MG Tablet PO SCH (09:05)
[2018-09-10] MEDS: Protonix 40MG Tablet PO SCH (09:06)
[2018-09-10] MEDS: FEOSOL 325 MG PO SCH (09:06)
== END 2018-09-10 09:35 | disposition home or self-care (01) | DRG 561 ==
LOC: MED SURG 13:05
PROVIDERS: ADMIT Family Medicine; ATTEND Family Medicine
DX: Z47.1 Aftercare following joint replacement surgery (principal); Z96.651 Presence of right artificial knee joint; R53.81 Other malaise; D64.9 Anemia, unspecified; K59.00 Constipation, unspecified; I10 Essential (primary) hypertension; I25.10 Atherosclerotic heart disease of native coronary artery without angina pectoris; E78.5 Hyperlipidemia, unspecified; M79.7 Fibromyalgia; M54.2 Cervicalgia; R42 Dizziness and giddiness; Z79.01 Long term (current) use of anticoagulants; Z79.899 Other long term (current) drug therapy
CPT/HCPCS: 36415; 81001; 82270; 85025; 85027; 97110-GP; A9270-GY

== ENCOUNTER 2020-05-31 07:36 | Day surgery (SDC) | payer MEDICARE, OTHER ==
[2020-05-31] MEDS ORDERED: BUPIVACAINE 0.5% VIAL IJ ONE (07:37)
[2020-05-31] MEDS ORDERED: Depo-Medrol 40 MG/ML IM ONE (07:37)
[2020-05-31] MEDS ORDERED: Ketamine HCl 50 MG/ML ONE (08:21)
[2020-05-31] MEDS ORDERED: DIPRIVAN 200 MG/20 ML IV ONE (08:21)
--- NOTE | 2020-05-31 09:11 | XRAY ---
Indication: Bilateral SI joint injection. Intraoperative fluoroscopy provided for 17 seconds. 4 digital spot images submitted for interpretation demonstrates posterior needle tip projecting over the inferior left and right SI joint. Correlate with intraoperative findings/report.
--- NOTE | 2020-05-31 09:11 | XRAY ---
17 seconds fluoroscopy time in surgery for bilateral injections of the SI joints.
[2020-05-31] MEDS ORDERED: Lactated Ringers 1,000 ML IV ONE (14:31)
== END 2020-05-31 08:59 | disposition home or self-care (01) ==
LOC: SDC-PAIN 07:36
PROVIDERS: ATTEND Psychiatry & Neurology Pain Medicine
DX: M46.1 Sacroiliitis, not elsewhere classified (principal); I10 Essential (primary) hypertension; M79.7 Fibromyalgia; K21.9 Gastro-esophageal reflux disease without esophagitis; Z86.73 Personal history of transient ischemic attack (TIA), and cerebral infarction without residual deficits; Z79.899 Other long term (current) drug therapy; Z79.01 Long term (current) use of anticoagulants
CPT/HCPCS: 27096; 72202; 77002; G0260; 99100; J1030; J2704

== ENCOUNTER 2020-07-05 10:24 | Day surgery (SDC) | payer MEDICARE, OTHER ==
[2020-07-05] MEDS ORDERED: Decadron 4 MG INJ IV ONE (10:25)
[2020-07-05] MEDS ORDERED: BUPIVACAINE 0.5% VIAL IJ ONE (10:25)
--- NOTE | 2020-07-05 13:26 | XRAY ---
Indication: Right C3-C4 MBB. Intraoperative fluoroscopy provided for 25 seconds. 2 digital spot images submitted for interpretation demonstrates posterior needle tips projecting over the expected right C3-C5 nerve roots. Correlate with intraoperative findings/report.
--- NOTE | 2020-07-05 13:38 | XRAY ---
25 seconds fluoroscopy time in surgery for right C3-C5 MBB.
[2020-07-05] MEDS ORDERED: Lactated Ringers 1,000 ML IV ONE (16:04)
== END 2020-07-05 12:37 | disposition home or self-care (01) ==
LOC: SDC-PAIN 10:24
PROVIDERS: ATTEND Psychiatry & Neurology Pain Medicine
DX: M47.812 Spondylosis without myelopathy or radiculopathy, cervical region (principal); M79.7 Fibromyalgia; I10 Essential (primary) hypertension; K21.9 Gastro-esophageal reflux disease without esophagitis; Z79.899 Other long term (current) drug therapy
CPT/HCPCS: 72040; 77002; J1100

== ENCOUNTER 2020-08-02 11:31 | Day surgery (SDC) | payer MEDICARE, OTHER ==
[2020-08-02] MEDS ORDERED: BUPIVACAINE 0.5% VIAL IJ ONE (11:32)
[2020-08-02] MEDS ORDERED: Depo-Medrol 40 MG/ML IM ONE (11:32)
[2020-08-02] MEDS ORDERED: DIPRIVAN 200 MG/20 ML IV ONE (12:59)
--- NOTE | 2020-08-02 14:13 | XRAY ---
Indication: Bilateral greater trochanter bursa injections. Intraoperative fluoroscopy provided for 12 seconds. 2 digital spot images obtained prone submitted for interpretation demonstrates needle tip lateral to left and right greater trochanter. Small amount of contrast injected for both needle tip placement. Correlate with intraoperative findings/report.
--- NOTE | 2020-08-02 14:20 | XRAY ---
12 seconds of fluoroscopy was used in surgery for bilateral greater trochanteric bursa injections.
[2020-08-02] MEDS ORDERED: Lactated Ringers 1,000 ML IV ONE (15:57)
== END 2020-08-02 13:25 | disposition home or self-care (01) ==
LOC: SDC-PAIN 11:31
PROVIDERS: ATTEND Psychiatry & Neurology Pain Medicine
DX: M70.62 Trochanteric bursitis, left hip (principal); M70.61 Trochanteric bursitis, right hip; F41.9 Anxiety disorder, unspecified; F32.9 Major depressive disorder, single episode, unspecified; M79.7 Fibromyalgia; I10 Essential (primary) hypertension; K21.9 Gastro-esophageal reflux disease without esophagitis; Z79.899 Other long term (current) drug therapy
CPT/HCPCS: 20610; 73521; 77002; J1030; J2704; Q9966

== ENCOUNTER 2020-08-30 10:07 | Day surgery (SDC) | payer MEDICARE, OTHER ==
[2020-08-30] MEDS ORDERED: BUPIVACAINE 0.5% VIAL IJ ONE (10:08)
[2020-08-30] MEDS ORDERED: Depo-Medrol 40 MG/ML IM ONE (10:08)
[2020-08-30] MEDS ORDERED: DIPRIVAN 200 MG/20 ML IV ONE (11:21)
--- NOTE | 2020-08-30 13:16 | XRAY ---
Indication: Bilateral interarticular and greater trochanter bursa injections. Intraoperative fluoroscopy provided for 49 seconds. 4 digital spot images submitted for interpretation demonstrates needle tips projecting lateral to the femur necks and greater trochanters bilaterally. Small amount of contrast injected for all needle tip placement. Correlate with intraoperative findings/report.
--- NOTE | 2020-08-30 13:16 | XRAY ---
49 seconds fluoroscopy time in surgery for bilateral intra-articular and greater trochanter bursa injections.
[2020-08-30] MEDS ORDERED: Lactated Ringers 1,000 ML IV ONE (15:31)
== END 2020-08-30 11:58 | disposition home or self-care (01) ==
LOC: SDC-PAIN 10:07
PROVIDERS: ATTEND Psychiatry & Neurology Pain Medicine
DX: M16.0 Bilateral primary osteoarthritis of hip (principal); M70.62 Trochanteric bursitis, left hip; M70.61 Trochanteric bursitis, right hip; F41.9 Anxiety disorder, unspecified; F32.9 Major depressive disorder, single episode, unspecified; I10 Essential (primary) hypertension; Z79.899 Other long term (current) drug therapy
CPT/HCPCS: 20610; 73522; 77002; J1030; J2704; Q9966

== ENCOUNTER 2021-05-30 11:46 | Day surgery (SDC) | payer MEDICARE, OTHER ==
[2021-05-30] MEDS ORDERED: Xylocaine 1% Vial 30 ML PF IJ ONE (11:47)
[2021-05-30] MEDS ORDERED: Depo-Medrol 40 MG/ML IM ONE (11:47)
[2021-05-30] MEDS ORDERED: Sodium Chloride 0.9(Preservative Free) 10 ML IJ ONE (11:47)
[2021-05-30] MEDS ORDERED: DIPRIVAN 200 MG/20 ML IV ONE (14:16)
[2021-05-30] MEDS ORDERED: Lactated Ringers 1,000 ML IV ONE (15:25)
--- NOTE | 2021-05-30 16:47 | XRAY ---
Indication: Lumbar REYNA. Intraoperative fluoroscopy provided for 27 seconds. 2 digital spot images submitted for interpretation demonstrates midline posterior needle tip projecting just posterior to last lumbar segment. Small amount of contrast injected for needle tip placement. Correlate with intraoperative findings/report.
--- NOTE | 2021-05-30 17:01 | XRAY ---
27 seconds fluoroscopy time in surgery for lumbar REYNA.
== END 2021-05-30 14:50 | disposition home or self-care (01) ==
LOC: SDC-PAIN 11:46
PROVIDERS: ATTEND Psychiatry & Neurology Pain Medicine
DX: M54.16 Radiculopathy, lumbar region (principal); I10 Essential (primary) hypertension; Z79.899 Other long term (current) drug therapy
CPT/HCPCS: 62323; 72100; 77003; J1030; J2001; J2704; Q9966

== ENCOUNTER 2021-06-06 10:22 | Day surgery (SDC) | payer MEDICARE, OTHER ==
[2021-06-06] MEDS ORDERED: DIPRIVAN 200 MG/20 ML IV ONE (13:04)
[2021-06-06] MEDS ORDERED: Lactated Ringers 1,000 ML IV ONE (13:28)
--- NOTE | 2021-06-06 14:08 | XRAY ---
Indication: Left knee injection. Intraoperative fluoroscopy provided for 18 seconds. Single digital spot imags submitted for interpretation demonstrate needle tip projecting over the left femur intercondylar notch. Small amount of contrast injected for needle tip placement. Correlate with intraoperative findings/report.
== END 2021-06-06 13:30 | disposition home or self-care (01) ==
LOC: SDC-PAIN 10:22
PROVIDERS: ATTEND Psychiatry & Neurology Pain Medicine
DX: M17.12 Unilateral primary osteoarthritis, left knee (principal); Z79.899 Other long term (current) drug therapy
CPT/HCPCS: 73560; 77002; J2704

== ENCOUNTER 2021-12-08 07:42 | Emergency (ER) | payer MEDICARE, OTHER ==
--- NOTE | 2021-12-08 08:00 | ERPHSYRPT ---
- History of Present Illness Time Seen by Provider: 12/08/21 07:55 Source: patient, family Exam Limitations: no limitations Physician History: This is a 71-year-old white female patient of Dr. Sherman Villalpando who fell and hit the back of her head at approximately 530 this morning. There is no loss of consciousness. Patient complains of headache, neck pain and upper back pain. Patient is on Plavix. Patient has a history of hypertension, hypothyroidism, dementia, anxiety issues, fibromyalgia, and gastroesophageal reflux disease. Patient did not lose consciousness Occurred: just prior to arrival Severity: mild Head Injury Location: occipital Method of Injury: fell Loss of Consciousness: no loss of consciousness Associated Symptoms: headaches, No shortness of breath, No chest pain, No syncope, No seizure Allergies/Adverse Reactions: dicloxacillin [Dicloxacillin] Allergy (Mild, Verified 12/08/21 08:24) levofloxacin [From Levaquin] Allergy (Mild, Verified 12/08/21 08:24) Penicillins Allergy (Mild, Verified 12/08/21 08:24) Sulfa (Sulfonamide Antibiotics) Allergy (Mild, Verified 12/08/21 08:24) Home Medications: ALPRAZolam 1 MG [Xanax 1 mg] 1 mg PO BIDPRN PRN 08/21/12 [History] Citalopram Hydrobromide [Celexa] 40 mg PO HS 08/21/12 [History] Potassium Chloride Tab* [Klor Con] 20 meq PO QID 08/21/12 [History] Clopidogrel Bisulfate [PLAVIX Tablet] 75 mg PO DAILY 09/23/16 [History] Omeprazole 20 MG [Prilosec 20 mg] 20 mg PO DAILY 09/23/16 [History] Pravastatin Sodium [Pravachol] 80 mg PO HS 09/23/16 [History] Donepezil HCl 10 mg [Aricept 10 MG] 10 mg PO DAILY 08/23/18 [History] Solifenacin Succinate 1 tab PO DAILY 12/08/21 [History] Valsartan [Diovan] 80 mg PO DAILY 12/08/21 [History] Hx Tetanus, Diphtheria Vaccination/Date Given: No Hx Influenza Vaccination/Date Given: Yes (2015) Hx Pneumococcal Vaccination/Date Given: Yes (2016) Travel Risk - International Travel Have you traveled outside of the country in past 3 weeks: No - Coronavirus Screening Are you exhibiting any of the following symptoms?: No Close contact with a COVID-19 positive Pt in past 14-21 Days: No - Review of Systems Constitutional: No Symptoms Eyes: No Symptoms Ears, Nose, & Throat: No Symptoms Respiratory: No Symptoms Cardiac: No Symptoms Abdominal/Gastrointestinal: No Symptoms Genitourinary Symptoms: No Symptoms Musculoskeletal: Back Pain (Upper/thoracic discomfort), Neck Pain, Fall Skin: No Symptoms Neurological: Headache Psychological: No Symptoms Endocrine: No Symptoms Hematologic/Lymphatic: No Symptoms Immunological/Allergic: No Symptoms All Other Systems: Reviewed and Negative - Past Medical History Pertinent Past Medical History: Yes Neurological History: Stroke ENT History: Cataracts Cardiac History: High Cholesterol, Hypertension Respiratory History: No Pertinent History Endocrine Medical History: Hypothyroidism Musculoskeletal History: Fibromyalgia, Osteoarthritis GI Medical History: GERD, Hernia, Other History: No Pertinent History Psycho-Social History: Anxiety, Depression Female Reproductive Disorders: No Pertinent History Other Medical History: AORTIC ANEURYSM, GERD, SPINAL STENOSIS, SPURS IN NECK ( FOLLOWED BY PAIN MANAGEMENT). RIGHT TOTAL KNEE 09/01/18 THYROIDCTOMY 07/02/18 - Past Surgical History Past Surgical History: Yes Neuro Surgical History: No Pertinent History Cardiac: No Pertinent History Respiratory: No Pertinent History Gastrointestinal: Cholecystectomy Genitourinary: No Pertinent History Musculoskeletal: Joint Replacement, Other Female Surgical History: Hysterectomy Other Surgical History: EPIDURAL, thyroidectomy. Torn mensicus left knee with repair 2006. Brain surgery 2016 for hemifacial spasm. Cholecystectomy 2015, Achilles tendon repair right, heel spur surgery both feet, neuroma removal right foot x 2, total hysterectomy. RIGHT KNEE CYST - Social History Smoking Status: Never smoker Exposure to second hand smoke: No Alcohol Use: None Drug Use: none Patient Lives Alone: No Significant Family History: no pertinent family hx - Nursing Vital Signs Nursing Vital Signs: Initial Vital Signs Temperature 97.2 F 12/08/21 07:50 Pulse Rate 74 12/08/21 07:50 Respiratory Rate 18 12/08/21 07:50 Blood Pressure 131/76 12/08/21 07:50 O2 Sat by Pulse Oximetry 98 12/08/21 07:50 Pain Scale Pain Intensity 3 - Alex Coma Score Best Eye Response (Alex): (4) open spontaneously Best Verbal Response ([place]): (5) oriented Best Motor Response ([place]): (6) obeys commands [place] Total: 15 - Physical Exam General Appearance: no apparent distress, alert, anxiety Head Injury: swelling (Occipital region. No lacerations present.), tenderness (In the area of the localized, occipital swelling) Eye Exam: bilateral eye: normal inspection, PERRL, EOMI ENT Exam: airway nml, nml ext.inspection, hearing grossly normal, No evidence of ENT injury, No dental injury, No clear fluid (ears), No clear fluid (nose), No midface instability, No decreased hearing, No hemotympanum Neck Exam: supple, trachea midline, full range of motion, normal alignment, normal inspection, paraspinous muscle tender (Mild bilateral) Cardiovascular/Respiratory Exam: chest non-tender, no respiratory distress Gastrointestinal/Abdominal Exam: non tender Pelvic Exam: not done Rectal Exam: not done Back Exam: normal inspection, normal range of motion, No CVA tenderness, No vertebral tenderness Extremity Exam: non-tender, normal range of motion, normal inspection Mental Status Exam: alert, oriented x 3, 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 Exam: normal hearing, normal speech, PERRL, tongue midline Coordination/Gait Exam: normal finger to nose, normal gait Motor/Sensory Exam: no motor deficit Skin Exam: normal color, warm, dry Lymphatic Exam: No adenopathy SpO2 Interpretation: normal O2 Delivery: Room Air - Course Nursing assessment & vital signs reviewed: Yes Ordered Tests: Active Orders 24 hr Category Date Time Status CERVICAL SPINE WO CONTRAST [CT] Stat Exams 12/08/21 07:52 Taken HEAD WITHOUT CONTRAST [CT] Stat Exams 12/08/21 07:52 Taken THORACIC SPINE W/O CONTRAST [CT] Stat Exams 12/08/21 08:01 Taken Medication Summary Discontinued Medications Generic Name Dose Route Start Last Admin Trade Name Freq PRN Reason Stop Dose Admin Hydromorphone HCl 0.5 mg 12/08/21 08:57 12/08/21 09:06 Hydromorphone 1 Mg/1ml Inj 1 Mg/Ml Syringe IM 12/08/21 08:58 0.5 mg STAT ONE Administration Hydromorphone HCl Confirm 12/08/21 08:59 Hydromorphone 1 Mg/1ml Inj 1 Mg/Ml Syringe Administered 12/08/21 09:00 Dose 1 mg .ROUTE .STK-MED ONE Ondansetron HCl 4 mg 12/08/21 08:58 12/08/21 09:05 Zofran 4 Mg/Udtablet Orally Disintegrating PO 12/08/21 08:59 4 mg STAT ONE Administration Ondansetron HCl Confirm 12/08/21 08:59 Zofran 4 Mg/Udtablet Orally Disintegrating Administered 12/08/21 09:00 Dose 4 mg .ROUTE .STK-MED ONE - Progress Progress: improved, pain not gone completely Progress Note: 12/08/21 09:04 Patient states that she is not taking any narcotic pain medication at home. 12/08/21 10:56 CAT scan of head without contrast shows no acute intracranial abnormality. Soft tissue hematoma present in the occipital region. CAT scan of cervical spine without contrast shows no acute fracture or subluxation. There are degenerative changes present. Counseled pt/family regarding: diagnosis, need for follow-up, rad results - Departure Departure Disposition: Home Clinical Impression: Fall with no significant injury, Hematoma of occipital region of scalp, Cervical muscle strain Condition: Stable Critical Care Time: No Referrals: NIKOLAY TAVAREZ [Primary Care Provider] - Follow up/PCP as directed Additional Instructions: Take your medication as prescribed. Follow-up with your primary care physician on 12/10/2021 for further evaluation and management. Ice pack to the hematoma area 3 times a day for the next 48 hours. Hold the Plavix for 48 hours then restart. Prescriptions: Hydrocodone/APAP 5/325 [Wiley 5/325 mg] 1 each PO Q8H PRN PRN #6 tablet MDD 3 PRN Reason: Pain
[2021-12-08] MEDS ORDERED: Hydromorphone 1 mg/ml Injection IM ONE (08:57)
[2021-12-08] MEDS ORDERED: ZOFRAN ODT 4 MG PO ONE (08:58)
[2021-12-08] MEDS ORDERED: ZOFRAN ODT 4 MG ONE (08:59)
[2021-12-08] MEDS ORDERED: Hydromorphone 1 mg/ml Injection ONE (08:59)
[2021-12-08 11:12] VITALS: BP 134/78; PULSE 55; O2SAT 99
--- NOTE | 2021-12-08 20:18 | XRAY ---
Indication: Pain following fall. Multiple contiguous axial images obtained through the head without contrast. Comparison: September 21, 2014 Normal appearing brain parenchyma and ventricles. No acute intracranial hemorrhage, abnormal extra-axial fluid collection, or mass effect. Fourth ventricle is midline without hydrocephalus. Bony calvarium intact with interval left occipital craniotomy. Visualized paranasal sinuses and mastoid air cells are clear. Impression: Left occipital craniotomy. No acute intracranial abnormalities. Comment: Preliminary interpretation made by [facility]. No critical discrepancy.
--- NOTE | 2021-12-08 20:21 | XRAY ---
Indication: Pain following fall. Multiple contiguous axial images obtained through the cervical spine. Sagittal and coronal reformatted images obtained. Comparison: None Axial images negative for acute fracture, suspicious bony lesions, or spinal canal stenosis. Mild C5-C6 degenerative endplate spurring, mild/moderate multilevel bilateral degenerative facet hypertrophy, and moderate atlantoaxial degenerative arthropathy. Sagittal and coronal reformatted images demonstrate normal alignment. C5-C6 disc space narrowing. No acute compression fracture, subluxation, or jump facet. Normal appearing craniocervical junction. Visualized noncontrasted soft tissues demonstrates mild bilateral chronic calcifications. CT head and CT thoracic spine reported separately. Impression: 1. Negative for acute fracture/subluxation. 2. Multilevel degenerative changes. Comment: Preliminary interpretation made by [facility]. No critical discrepancy.
--- NOTE | 2021-12-08 20:23 | XRAY ---
Indication: Pain following fall. Multiple contiguous axial images obtained through the thoracic spine. Sagittal and coronal reformatted images obtained. Comparison: None Axial images negative for acute fracture or spinal canal stenosis. T4/T5 vertebral hemangiomas. Mild/moderate multilevel bridging and nonbridging endplate osteophytes. Sagittal and coronal reformatted images demonstrate normal alignment. No acute compression fracture, subluxation, or jump facet. Visualized noncontrasted soft tissues demonstrates bilateral dependent atelectasis. CT cervical spine reported separately. Impression: 1. Negative for acute fracture/subluxation. 2. Multilevel degenerative changes and T4/T5 vertebral hemangiomas. Comment: Preliminary interpretation made by [facility]. No critical discrepancy.
== END 2021-12-08 11:14 | disposition home or self-care (01) ==
LOC: ED 07:42
DX: S00.03XA Contusion of scalp, initial encounter (principal); S16.1XXA Strain of muscle, fascia and tendon at neck level, initial encounter; W19.XXXA Unspecified fall, initial encounter; R51.9 Headache, unspecified; M54.2 Cervicalgia; M54.6 Pain in thoracic spine; I10 Essential (primary) hypertension; E78.5 Hyperlipidemia, unspecified; Z79.02 Long term (current) use of antithrombotics/antiplatelets; Z79.899 Other long term (current) drug therapy; Z79.891 Long term (current) use of opiate analgesic
CPT/HCPCS: 70450; 72125; 72128; 96372; 99283; J1170; Q0162

== ENCOUNTER 2022-01-11 16:34 | Emergency (ER) | payer MEDICARE, OTHER ==
[2022-01-11] MEDS ORDERED: TORAdol 30 mg Injection IM ONE (17:05)
--- NOTE | 2022-01-11 17:05 | ERPHSYRPT ---
- History of Present Illness Time Seen by Provider: 01/11/22 17:02 Source: patient, family Exam Limitations: no limitations Patient Subjective Stated Complaint: PT STATES SHE WAS PUTTING SOMETHING IN FRIDGE AND FELL TODAY, LANDED ON BACK STRIKING HEAD ON FLOOR, Triage Nursing Assessment: PT ALERT, RESP EASY, SKIN W/D/P. WALKED IN, FACE MASK IN PLACE, CO PAIN TO MID BACK AND HEAD Physician History: Patient is 71-year-old female with multiple heart problems osteoarthritis fibromyalgia and patient has been on Plavix was at home suddenly fell on her back injured her thoracic area on the back as well as hit her head. Patient is on Plavix so she was told to make sure if she hits her head she needs to be checked out for bleeding in her brain so she came to the emergency room. Patient mainly complaining of pain in her upper back which is tender on touch. She denies any other injury. Occurred: just prior to arrival Reason for Fall: tripped Injuries/Pain Location: head, chest, back Loss of Consciousness: no loss of consciousness Quality: aching Severity of Pain-Max: moderate Severity of Pain-Current: moderate Modifying Factors: Improves With: nothing Associated Symptoms (Fall): denies symptoms Allergies/Adverse Reactions: dicloxacillin [Dicloxacillin] Allergy (Mild, Verified 01/11/22 16:47) levofloxacin [From Levaquin] Allergy (Mild, Verified 01/11/22 16:47) Penicillins Allergy (Mild, Verified 01/11/22 16:47) Sulfa (Sulfonamide Antibiotics) Allergy (Mild, Verified 01/11/22 16:47) Home Medications: ALPRAZolam 1 MG [Xanax 1 mg] 1 mg PO BIDPRN PRN 08/21/12 [History] Citalopram Hydrobromide [Celexa] 40 mg PO HS 08/21/12 [History] Potassium Chloride Tab* [Klor Con] 20 meq PO QID 08/21/12 [History] Clopidogrel Bisulfate [PLAVIX Tablet] 75 mg PO DAILY 09/23/16 [History] Omeprazole 20 MG [Prilosec 20 mg] 20 mg PO DAILY 09/23/16 [History] Pravastatin Sodium [Pravachol] 80 mg PO HS 09/23/16 [History] Donepezil HCl 10 mg [Aricept 10 MG] 10 mg PO DAILY 08/23/18 [History] Solifenacin Succinate 1 tab PO DAILY 12/08/21 [History] Valsartan [Diovan] 80 mg PO DAILY 12/08/21 [History] Hx Tetanus, Diphtheria Vaccination/Date Given: No Hx Influenza Vaccination/Date Given: Yes (2015) Hx Pneumococcal Vaccination/Date Given: Yes (2015) Immunizations Up to Date: Yes Travel Risk - International Travel Have you traveled outside of the country in past 3 weeks: No - Coronavirus Screening Are you exhibiting any of the following symptoms?: No Close contact with a COVID-19 positive Pt in past 14-21 Days: No - Vaccine Status Have you recieved a Covid-19 vaccination: Yes 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: 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 - Vaccination Dates Date of 2cond Vaccination (if applicable): 2020 - Review of Systems Constitutional: No Fever, No Chills Eyes: No Symptoms Ears, Nose, & Throat: No Symptoms Respiratory: No Cough, No Dyspnea Cardiac: No Chest Pain, No Edema, No Syncope Abdominal/Gastrointestinal: No Abdominal Pain, No Nausea, No Vomiting, No Diarrhea Genitourinary Symptoms: No Dysuria Musculoskeletal: Back Pain, Fall, No Neck Pain, No Deformity Skin: No Rash Neurological: No Dizziness, No Focal Weakness, No Sensory Changes Psychological: No Symptoms Endocrine: No Symptoms All Other Systems: Reviewed and Negative - Past Medical History Pertinent Past Medical History: Yes Neurological History: Stroke ENT History: Cataracts Cardiac History: High Cholesterol, Hypertension Respiratory History: No Pertinent History Endocrine Medical History: Hypothyroidism Musculoskeletal History: Fibromyalgia, Osteoarthritis GI Medical History: GERD, Hernia, Other History: No Pertinent History Psycho-Social History: Anxiety, Depression Female Reproductive Disorders: No Pertinent History Other Medical History: AORTIC ANEURYSM, GERD, SPINAL STENOSIS, SPURS IN NECK (FOLLOWED BY PAIN MANAGEMENT). RIGHT TOTAL KNEE 09/01/18 THYROIDCTOMY 07/02/18 - Past Surgical History Past Surgical History: Yes Neuro Surgical History: No Pertinent History Cardiac: No Pertinent History Respiratory: No Pertinent History Gastrointestinal: Cholecystectomy Genitourinary: No Pertinent History Musculoskeletal: Joint Replacement, Other Female Surgical History: Hysterectomy Other Surgical History: EPIDURAL, thyroidectomy. Torn mensicus left knee with repair 2005. Brain surgery 2016 for hemifacial spasm. Cholecystectomy 2014, Achilles tendon repair right, heel spur surgery both feet, neuroma removal right foot x 2, total hysterectomy. RIGHT KNEE CYST - Social History Smoking Status: Never smoker Exposure to second hand smoke: No Alcohol Use: None Drug Use: none Patient Lives Alone: No Significant Family History: no pertinent family hx - Nursing Vital Signs Nursing Vital Signs: Initial Vital Signs Blood Pressure 118/80 01/11/22 16:48 Pain Scale Pain Intensity 10 - Alex Coma Score Best Eye Response ([place]): (4) open spontaneously Best Verbal Response (Alex): (5) oriented Best Motor Response (Alex): (6) obeys commands Alex Total: 15 - Physical Exam General Appearance: no apparent distress, alert Head Injury: no evidence of injury Eye Exam: PERRL/EOMI ENT Exam: airway nml Neck Exam: normal inspection, No tenderness Respiratory/Chest Exam: normal breath sounds, No chest tenderness, No respiratory distress Cardiovascular Exam: normal heart sounds, regular rate/rhythm Gastrointestinal Exam: soft, No tenderness, No distention, No guarding, No ecchymosis Back Exam: normal inspection, No vertebral tenderness Extremity Exam: normal inspection, normal range of motion, pelvis stable, No deformities Neurologic Exam: alert, oriented x 3, cooperative, sensation nml, No motor deficits Skin Exam: normal color, warm, dry - Course Nursing assessment & vital signs reviewed: Yes - Radiology Exams T-Spine X-ray Interpretation: Reviewed by me, Negative, No Fracture - CT Exams Head CT Interpretation: Tele-radiologist Report (small acute subdural hematoma along posterior falx cerebri 0.2 cm thickness, no cerebral edema) Ordered Tests: Active Orders 24 hr Category Date Time Status HEAD WITHOUT CONTRAST [CT] Stat Exams 01/11/22 17:12 Taken THORACIC SPINE (AP,LAT,SWIMM) Stat Exams 01/11/22 17:13 Taken Medication Summary Discontinued Medications Generic Name Dose Route Start Last Admin Trade Name Freq PRN Reason Stop Dose Admin Ketorolac Tromethamine 60 mg 01/11/22 17:05 01/11/22 17:26 Ketorolac Tromethamine 30 Mg/Ml Inj IM 01/11/22 17:06 60 mg STAT ONE Administration Ketorolac Tromethamine Confirm 01/11/22 17:26 Ketorolac Tromethamine 30 Mg/Ml Inj Administered 01/11/22 17:27 Dose 60 mg .ROUTE .STK-MED ONE - Progress Progress: improved, pain not gone completely Progress Note: 01/11/22 18:13 I discussed patient CAT scan of the head report with patient patient and patient's granddaughter at length they understood. Patient is strongly advised to stop Plavix for at least 5 days and any nonsteroidal anti-inflammatory as well as steroid if patient is on. Patient is also on darifenacin which I advised her to stop for at least 5 days. Patient her family and her granddaughter were given detailed information about what to watch for what other sign of spreading subdural hematoma. If any of those sign happens they advised her to bring it to the emergency room. Counseled pt/family regarding: diagnosis, need for follow-up, rad results - Departure Departure Disposition: Home Clinical Impression: Subdural hematoma, post-traumatic Qualifiers: Encounter type: initial encounter Loss of consciousness presence/duration: without LOC Qualified Code(s): S06.5X0A - Traumatic subdural hemorrhage without loss of consciousness, initial encounter Acute thoracic back pain Qualifiers: Back pain laterality: bilateral Qualified Code(s): M54.6 - Pain in thoracic spine Fall Qualifiers: Encounter type: initial encounter Qualified Code(s): W19.XXXA - Unspecified fall, initial encounter Condition: Stable Critical Care Time: Yes Critical Care Time(excluding separately billable procedures): Critical 30-74 mins Referrals: NIKOLAY TAVAREZ [Primary Care Provider] - Follow up/PCP as directed Instructions: Contusion (DC), Preventing Falls in Older Adults, Subdural Hematoma (DC) Additional Instructions: Please hold Plavix and guaifenesin for next 5 days. Please follow the subdural hematoma instruction. If any signs or symptoms of subdural hematoma is observed bring patient to the emergency room. Follow-up with your primary care doctor in next 2 to 3 days. Discharge/Care Plan ALEJANDRA FRANCIS was seen on 01/11/22 in the Emergency Room. The patient was counseled regarding Diagnosis,Lab results, Imaging studies, need for follow up and when to return to the Emergency Room. Prescriptions given: Discharge Note I have spoken with the patient and/or caregivers. I have explained the patient's condition, diagnosis and treatment plan based on the information available to me at this time. I have answered the patient's and/or caregiver's questions and addressed any concerns. The patient and/or caregivers have as good understanding of the patient's diagnosis, condition and treatment plan as can be expected at this point. The vital signs have been stable. The patient's condition is stable and appropriate for discharge from the emergency department. The patient will pursue further outpatient evaluation with the primary care physician or other designated or consulting physician as outlined in the discharge instructions. The patient and/or caregivers are agreeable to this plan of care and follow-up instructions have been explained in detail. The patient and/or caregivers have received these instruction. The patient/and or caregivers are aware that any significant change in condition or worsening of symptoms should prompt an immediate return to this or the closest emergency department or call 911. ALEJANDRA FRANCIS was seen on 01/11/22 n the Emergency Room. At that time you were treated for an emergent condition, during your visit Laboratory, Radiology and/or other procedures may have been ordered. It is very important that you follow-up with your Primary Care Physician NIKOLAY TAVAREZ within the next 24-48 hours to review your Emergency Room visit and the final results of testing that was ordered. Some test results such as Urine Cultures, Blood Cultures, and other cultures if ordered will not be finalized for 24-48 hours. If you do not have a Primary Care Provider please call the medical records department at [phone] ext [phone] to obtain a copy of your results or you may sign into our patient portal to obtain these results by visiting us @ [email or web address] and completing the following steps: 1. Click on the Patient Portal link 2. Click the Patient Self Enrollment Link to complete the enrollment form and entering your 3. Once the enrollment form is completed you will receive an email with a temporary ID and password at the email address you provided. 4. Next choose a user name and password. Your user name must be at least 4 characters long and your password must be at least 4 characters long. 5. Choose a security question from the list and provide your answer to the question. If you already have signed into the Health Portal you may access your Health Care Information 23/09 by the following steps: 1. Login to our website @ [email or web address] 2. Enter your original user name and password. FAQS The [facility] Health Portal is an online tool that contains your Lab Results, Radiology Reports, Visit History, Discharge Instructions and Health Summary Lab and Radiology Results will not be available for 72 hours on the portal. The Portal is a secure site, passwords are encryted and URLs are re-written so they cannot be copied and pasted. You and authorized family members are the only ones who can access your Portal. Also there is a timeout feature that protects your information if you leave the Portal page open. If you have technical difficulty please use the Contact Us link on the page this will allow you to submit any questions you have regarding the Portal or you may contact the Medical Record Department at [phone] ext [phone].
[2022-01-11] MEDS ORDERED: TORAdol 30 mg Injection ONE (17:26)
[2022-01-11 18:45] VITALS: BP 128/88; PULSE 62; O2SAT 98
--- NOTE | 2022-01-11 22:47 | XRAY ---
Indication: Head injury following fall. Blood thinner therapy. Multiple contiguous axial images obtained through the head without contrast. Comparison: December 08, 2021. Age-appropriate global atrophy. New tiny subdural hematoma along the posterior falx measuring 2 mm thickness. No mass effect/midline shifting. Fourth ventricle is midline without hydrocephalus. Bony calvarium intact again with left occipital craniotomy. Paranasal sinuses and mastoid air cells are clear. Impression: New tiny subdural hematoma along posterior falx. Comment: Preliminary interpretation made by [facility]. No critical discrepancy.
--- NOTE | 2022-01-11 22:50 | XRAY ---
Indication: Pain following fall. Comparison: CT thoracic spine December 08, 2021. AP/lateral thoracic spine unchanged again demonstrating osteopenia, mild/moderate multilevel degenerative spondylosis, and cholecystectomy clips. No new/acute bony, articular, or soft tissue abnormalities.
== END 2022-01-11 18:45 | disposition home or self-care (01) ==
LOC: ED 16:34
DX: S06.5X0A Traumatic subdural hemorrhage without loss of consciousness, initial encounter (principal); W18.30XA Fall on same level, unspecified, initial encounter; Y92.000 Kitchen of unspecified non-institutional (private) residence as the place of occurrence of the external cause; M54.6 Pain in thoracic spine; E78.5 Hyperlipidemia, unspecified; I10 Essential (primary) hypertension; Z79.02 Long term (current) use of antithrombotics/antiplatelets; Z79.899 Other long term (current) drug therapy
CPT/HCPCS: 70450; 72072; 96372; 99283; 99291; J1885

== ENCOUNTER 2022-07-24 11:21 | Day surgery (SDC) | payer MEDICARE, OTHER ==
[2022-07-24] MEDS ORDERED: BUPIVACAINE 0.5% VIAL IJ ONE (11:22)
[2022-07-24] MEDS ORDERED: Depo-Medrol 40 MG/ML IM ONE (11:22)
[2022-07-24] MEDS ORDERED: DIPRIVAN 200 MG/20 ML IV ONE (13:05)
--- NOTE | 2022-07-24 14:01 | XRAY ---
Indication: Bilateral hip and bilateral greater trochanter bursa injection. Intraoperative fluoroscopy provided for 29 seconds. 4 digital spot image submitted for interpretation demonstrates needle tip lateral to left/right femur necks and left/right greater trochanters. Small amount of contrast injected for all needle tip placement. Correlate with intraoperative findings/report.
[2022-07-24] MEDS ORDERED: Lactated Ringers 1,000 ML IV ONE (15:22)
== END 2022-07-24 13:40 | disposition home or self-care (01) ==
LOC: SDC-PAIN 11:21
PROVIDERS: ATTEND Psychiatry & Neurology Pain Medicine
DX: M16.0 Bilateral primary osteoarthritis of hip (principal); M70.62 Trochanteric bursitis, left hip; M70.61 Trochanteric bursitis, right hip; Z79.899 Other long term (current) drug therapy
CPT/HCPCS: 20610; 73522; 77002; J1030; J2704; Q9966

== ENCOUNTER 2023-06-04 13:56 | Day surgery (SDC) | payer MEDICARE, OTHER ==
[2023-06-04] MEDS ORDERED: BUPIVACAINE 0.5% VIAL IJ ONE (13:57)
[2023-06-04] MEDS ORDERED: LIDOCAINE HCL 1% 50 MG/5 ML VL PF IJ ONE (13:57)
[2023-06-04] MEDS ORDERED: Depo-Medrol 40 MG/ML IM ONE (13:57)
[2023-06-04] MEDS ORDERED: Lactated Ringers 1,000 ML IV ONE (14:36)
[2023-06-04] MEDS ORDERED: DIPRIVAN 200 MG/20 ML IV ONE (15:02)
--- NOTE | 2023-06-04 17:37 | XRAY ---
Indication: Bilateral hip and greater trochanter bursa injection. Intraoperative fluoroscopy provided for 38 seconds. 4 digital spot image submitted for interpretation demonstrates needle tips projecting lateral to left/right femur necks and left/right greater trochanters. Small amount of contrast injected for all needle tip placement. Correlate with intraoperative findings/report.
--- NOTE | 2023-06-04 17:40 | XRAY ---
38 seconds of fluoroscopy was used in surgery for a bilateral intra-articular hip and greater trochanteric bursa injection.
== END 2023-06-04 15:46 | disposition home or self-care (01) ==
LOC: SDC-PAIN 13:56
PROVIDERS: ATTEND Psychiatry & Neurology Pain Medicine
DX: M16.0 Bilateral primary osteoarthritis of hip (principal)
CPT/HCPCS: 20610; 73522; 77002; J1010; J2001; J2704; Q9966; J1030

== ENCOUNTER 2023-11-05 08:35 | Day surgery (SDC) | payer MEDICARE, OTHER ==
[2023-11-05] MEDS ORDERED: Depo-Medrol 40 MG/ML IM ONE (08:36)
[2023-11-05] MEDS ORDERED: BUPIVACAINE 0.5% VIAL IJ ONE (08:36)
[2023-11-05] MEDS ORDERED: Lactated Ringers 1,000 ML IV ONE (12:10)
[2023-11-05] MEDS ORDERED: DIPRIVAN 200 MG/20 ML IV ONE (12:18)
--- NOTE | 2023-11-05 13:09 | XRAY ---
Indication: Right hip and greater trochanter bursa injection. Intraoperative fluoroscopy provided for 16 seconds. 2 digital spot images submitted for interpretation demonstrates needle tip projecting lateral to right femur neck. Second needle tip lateral to right greater trochanter. Small amount of contrast injected for needle tip placement. Correlate with intraoperative findings/report.
--- NOTE | 2023-11-05 15:00 | XRAY ---
16 seconds of fluoroscopy was used in surgery for a right intra-articular hip and greater trochanteric bursa injection.
== END 2023-11-05 10:50 | disposition home or self-care (01) ==
LOC: SDC-PAIN 08:35
PROVIDERS: ATTEND Psychiatry & Neurology Pain Medicine
DX: M16.11 Unilateral primary osteoarthritis, right hip (principal); M70.61 Trochanteric bursitis, right hip
CPT/HCPCS: 20610; 73502; 77002; J2704; Q9966

== ENCOUNTER 2023-12-24 10:37 | Day surgery (SDC) | payer MEDICARE, OTHER ==
[2023-12-24] MEDS ORDERED: BUPIVACAINE 0.5% VIAL IJ ONE (10:38)
[2023-12-24] MEDS ORDERED: Depo-Medrol 40 MG/ML IM ONE (10:38)
[2023-12-24] MEDS ORDERED: DIPRIVAN 200 MG/20 ML IV ONE (12:25)
--- NOTE | 2023-12-24 13:34 | XRAY ---
Indication: Bilateral SI joint injection. Intraoperative fluoroscopy provided for 17 seconds. 2 digital spot image submitted for interpretation demonstrates posterior needle tips projecting over the expected left and right SI joints. Small amount of contrast injected for needle tip placement. Correlate with intraoperative findings/report.
--- NOTE | 2023-12-24 14:12 | XRAY ---
17 seconds of fluoroscopy was used in surgery for a bilateral sacroiliac joint injection.
== END 2023-12-24 12:55 | disposition home or self-care (01) ==
LOC: SDC-PAIN 10:37
PROVIDERS: ATTEND Psychiatry & Neurology Pain Medicine
DX: M46.1 Sacroiliitis, not elsewhere classified (principal)
CPT/HCPCS: 27096; 72202; 77002; G0260; J2704; Q9966

== ENCOUNTER 2024-03-30 14:24 | Emergency (ER) | payer MEDICARE, OTHER ==
--- NOTE | 2024-03-30 14:31 | ERPHSYRPT ---
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 Patient underwent a right hip replacement in early March 2024. Today, she had the above-stated symptoms. In addition she had pain in the right calf. Her shortness of breath worsens with exertion. She does not have chest pain. She has no abdominal pain. Patient has a history of dementia, hyperlipidemia, gastroesophageal reflux disease, anxiety and depression. She is on Plavix. Timing/Duration: today, worse Activities at Onset: activity (Short of breath with exertion) Severity of Dyspnea-Max: mild (To moderate) Severity of Dyspnea-Current: mild Possible Cause: no prior episodes Modifying Factors: Improves With: activity (Patient's shortness of breath is worse with exertion), exertion (Worsens), rest (Improves) Associated Symptoms: weakness, dizziness, No chest pain/discomfort, No wheezing, No heaviness Allergies/Adverse Reactions: dicloxacillin [Dicloxacillin] Allergy (Mild, Verified 03/30/24 14:50) Hives levofloxacin [From Levaquin] Allergy (Mild, Verified 03/30/24 14:50) Hives Penicillins Allergy (Mild, Verified 03/30/24 14:50) Hives Sulfa (Sulfonamide Antibiotics) Allergy (Mild, Verified 03/30/24 14:50) Hives Home Medications: ALPRAZolam 1 MG [Xanax 1 mg] 1 mg PO BIDPRN PRN 08/21/12 [History] Citalopram Hydrobromide [Celexa] 40 mg PO HS 08/21/12 [History] Potassium Chloride Tab* [Klor Con] 10 meq PO BID 08/21/12 [History] Clopidogrel Bisulfate [PLAVIX Tablet] 75 mg PO DAILY 09/23/16 [History] Omeprazole 20 MG [Prilosec 20 mg] 20 mg PO DAILY 09/23/16 [History] Pravastatin Sodium [Pravachol] 45 mg PO HS 09/23/16 [History] Donepezil HCl 10 mg [Aricept 10 MG] 10 mg PO DAILY 08/23/18 [History] Acetaminophen 500 mg [Tylenol Extra Strength 500 mg] 500 mg PO Q8H PRN PRN 03/30/24 [History] Hx Tetanus, Diphtheria Vaccination/Date Given: No Hx Influenza Vaccination/Date Given: Yes (2015) Hx Pneumococcal Vaccination/Date Given: Yes (2016) Travel Risk - International Travel Have you traveled outside of the country in past 3 weeks: No - Emerging Infectious Disease Are you exhibiting symptoms associated with any current EIDs: No - Review of Systems Constitutional: Weakness Eyes: No Symptoms Ears, Nose, & Throat: No Symptoms Respiratory: Dyspnea on Exertion (KHOURY) Cardiac: No Symptoms Abdominal/Gastrointestinal: No Symptoms Genitourinary Symptoms: No Symptoms Musculoskeletal: No Symptoms Skin: No Symptoms Neurological: Dizziness Psychological: No Symptoms Endocrine: No Symptoms Hematologic/Lymphatic: No Symptoms Immunological/Allergic: No Symptoms All Other Systems: Reviewed and Negative - Past Medical History Pertinent Past Medical History: Yes Neurological History: Stroke, Other ENT History: Cataracts Cardiac History: High Cholesterol, Hypertension Respiratory History: No Pertinent History Endocrine Medical History: Hypothyroidism Musculoskeletal History: Osteoarthritis, Osteoporosis GI Medical History: GERD, Other History: No Pertinent History Psycho-Social History: Anxiety, Depression Female Reproductive Disorders: No Pertinent History Other Medical History: HX OF SURGERY FOR HEMIFACIAL SPASM WITH DUE TO BLOOD VESSELS TOUCHING NERVES - HAD DASIA PATCHES PLACED BETWEEN NERVE AND BLOOD VESSEL 7 YEARS AGO. AFTER SURGERY HAD VERTIGO AND UNDERWENT THERAPY. 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 HX RIGHT TOTAL KNEE 2018. HX OF HTN BUT HAS LOST WEIGHT AND AFTER FALL DOCTOR TOOK HER OFF MEDS AND PRESSURE REMAINS GOOD - Past Surgical History Past Surgical History: Yes Neuro Surgical History: Neurological Surgery Cardiac: No Pertinent History Respiratory: No Pertinent History Gastrointestinal: Cholecystectomy Genitourinary: No Pertinent History Musculoskeletal: Joint Replacement, Other Female Surgical History: Hysterectomy Other Surgical History: EPIDURAL, thyroidectomy. Torn mensicus left knee with repair 2006. Brain surgery 2016 for hemifacial spasm. Cholecystectomy 2015, Achilles tendon repair right, heel spur surgery both feet, neuroma removal right foot x 2, total hysterectomy. RIGHT KNEE CYST. right total knee Significant Family History: no pertinent family hx - Social History Smoking Status: Never smoker Exposure to second hand smoke: No Alcohol Use: None Drug Use: none Patient Lives Alone: No - Nursing Vital Signs Nursing Vital Signs: Initial Vital Signs Blood Pressure 150/82 03/30/24 14:24 O2 Sat by Pulse Oximetry 98 03/30/24 14:24 Pain Scale Pain Intensity 2 - Physical Exam General Appearance: no apparent distress, alert, anxiety Eye Exam: PERRL/EOMI, eyes nml inspection Ears, Nose, Throat Exam: hearing grossly normal, normal ENT inspection, normal pharynx Neck Exam: normal inspection, non-tender, supple, full range of motion Respiratory Exam: normal breath sounds, lungs clear, respiratory distress, airway intact, No chest tenderness Cardiovascular/Chest Exam: normal heart sounds, regular rate/rhythm Abdominal/Gastrointestinal Exam: soft, normal bowel sounds, No tenderness, No guarding Rectal Exam: not done Extremity Exam: non-tender, normal range of motion, normal inspection, normal capillary refill, no calf tenderness, no pedal edema, pelvis stable Neurologic Exam: alert, oriented x 3, cooperative, client service administrator II-XII nml as tested, nml cerebellar function, nml station & gait, sensation nml Skin Exam: normal color, warm, dry Lymphatic Exam: No adenopathy SpO2 Interpretation: normal O2 Delivery: Room Air - Course Nursing assessment & vital signs reviewed: Yes EKG Interpreted by Me: RATE (52), Sinus Rhythm, NORMAL AXIS, NORMAL INTERVALS, NORMAL QRS, Other (No acute ischemia on today's twelve-lead EKG. QTc is 427) Ordered Tests: Active Orders 24 hr Category Date Time Status EKG-ER Only STAT Care 03/30/24 14:51 Active IV Insertion STAT Care 03/30/24 14:51 Active CHEST WITH CONTRAST [CT] Routine Exams 03/30/24 16:06 Taken HEAD WITHOUT CONTRAST [CT] Stat Exams 03/30/24 14:53 Completed VENOUS UNILAT/LIMITED EXTREMIT [US] Stat Exams 03/30/24 14:54 Completed CBC W DIFF Stat Lab 03/30/24 15:00 Completed CMP Stat Lab 03/30/24 15:00 Completed D-DIMER QUANTITATIVE Stat Lab 03/30/24 15:00 Completed NT PRO BNPII Stat Lab 03/30/24 15:00 Completed TROPONIN Q4H Lab 03/30/24 15:00 Completed TROPONIN Q4H Lab 03/30/24 19:00 Ordered TROPONIN Q4H Lab 03/30/24 23:00 Ordered UA W/RFX UR CULTURE Stat Lab 03/30/24 15:38 Completed Medication Summary Generic Name Dose Route Start Last Admin Trade Name Chelle PRN Reason Stop Dose Admin Sodium Chloride 1,000 mls @ 100 mls/hr 03/30/24 15:00 03/30/24 15:13 Sodium Chloride 0.9% 1000 Ml IV 04/29/24 14:59 100 mls/hr .Q10H TIANA Administration Lab/Rad Data: Laboratory Result Diagrams 03/30/24 15:00 03/30/24 15:00 Laboratory Results 03/30/24 03/30/24 03/30/24 Range/Units 15:38 15:00 15:00 WBC (3.98-10.04) x10^3/uL RBC (3.93-5.22) x10^6/uL Hgb (11.2-15.7) g/dL Hct (34.1-44.9) % MCV (79.4-94.8) fL MCH (25.6-32.2) pg MCHC (32.2-35.5) g/dL RDW (11.7-14.4) % Plt Count (182-369) x10^3/uL MPV (9.4-12.3) fL Gran % (34.0-71.1) % Immature Gran % (Auto) (0.001-0.429) % Nucleat RBC Rel Count (0.00-0.2) % Eos # (Auto) (0.04-0.36) x10^3/uL Immature Gran # (Auto) (0.001-0.031) x10^3u/L Absolute Lymphs (auto) (1.18-3.74) x10^3/uL Absolute Monos (auto) (0.24-0.86) x10^3/uL Absolute Nucleated RBC (0.00-0.012) x10^3u/L Lymphocytes % (19.3-51.7) % Monocytes % (4.7-12.5) % Eosinophils % (0.7-5.8) % Basophils % (0.1-1.2) % Absolute Granulocytes (1.56-6.13) x10^3/uL Basophils # (0.01-0.08) x10^3/uL D-Dimer 3.37 H* (0.0-0.50) mg/L Sodium (135-145) mmol/L Potassium (3.5-5.1) mmol/L Chloride (98-107) mmol/L Carbon Dioxide (22-30) mmol/L Anion Gap (5-15) MEQ/L BUN (7-17) mg/dL Creatinine (0.52-1.04) mg/dL Estimated GFR ML/MIN Glucose (74-106) mg/dL Calcium (8.4-10.2) mg/dL Total Bilirubin (0.2-1.3) mg/dL AST (14-36) U/L ALT (0-35) U/L Alkaline Phosphatase (38-126) U/L Troponin I < 0.012 (0.000-0.033) ng/mL NT-Pro-B Natriuret Pep 431 (<300) pg/mL Serum Total Protein (6.3-8.2) g/dL Albumin (3.5-5.0) g/dL Urine Color Dark Yellow A (Yellow) Urine Appearance Clear (Clear) Urine pH 7.0 (4.6-8.0) Ur Specific [place] 1.025 (1.005-1.030) Urine Protein Trace A (Negative) Urine Glucose (UA) Negative (Negative) mg/dL Urine Ketones Trace A (Negative) Urine Blood Negative (Negative) Urine Nitrite Negative (Negative) Urine Bilirubin Negative (Negative) Urine Urobilinogen 1.0 A (0.2) mg/dL Ur Leukocyte Esterase Negative (Negative) U Hyaline Cast (Auto) 3-5 A (0-2) /LPF Urine Microscopic RBC 0-2 (0-5) /HPF Urine Microscopic WBC 0-2 (0-5) /HPF Ur Epithelial Cells Rare (None Seen) /HPF Urine Bacteria None Seen (None Seen) /HPF Urine Culture Reflexed NO (NO) 03/30/24 03/30/24 Range/Units 15:00 15:00 WBC 5.3 (3.98-10.04) x10^3/uL RBC 3.52 L (3.93-5.22) x10^6/uL Hgb 10.2 L (11.2-15.7) g/dL Hct 32.3 L (34.1-44.9) % MCV 91.8 (79.4-94.8) fL MCH 29.0 (25.6-32.2) pg MCHC 31.6 L (32.2-35.5) g/dL RDW 14.4 (11.7-14.4) % Plt Count 251 (182-369) x10^3/uL MPV 10.0 (9.4-12.3) fL Gran % 53.7 (34.0-71.1) % Immature Gran % (Auto) 0.4 (0.001-0.429) % Nucleat RBC Rel Count 0.0 (0.00-0.2) % Eos # (Auto) 0.47 H (0.04-0.36) x10^3/uL Immature Gran # (Auto) 0.02 (0.001-0.031) x10^3u/L Absolute Lymphs (auto) 1.44 (1.18-3.74) x10^3/uL Absolute Monos (auto) 0.46 (0.24-0.86) x10^3/uL Absolute Nucleated RBC 0.00 (0.00-0.012) x10^3u/L Lymphocytes % 27.2 (19.3-51.7) % Monocytes % 8.7 (4.7-12.5) % Eosinophils % 8.9 H (0.7-5.8) % Basophils % 1.1 (0.1-1.2) % Absolute Granulocytes 2.85 (1.56-6.13) x10^3/uL Basophils # 0.06 (0.01-0.08) x10^3/uL D-Dimer (0.0-0.50) mg/L Sodium 135 (135-145) mmol/L Potassium 4.5 (3.5-5.1) mmol/L Chloride 106 (98-107) mmol/L Carbon Dioxide 23 (22-30) mmol/L Anion Gap 10.6 (5-15) MEQ/L BUN 14 (7-17) mg/dL Creatinine 0.77 (0.52-1.04) mg/dL Estimated GFR 79.9 ML/MIN Glucose 79 (74-106) mg/dL Calcium 8.6 (8.4-10.2) mg/dL Total Bilirubin 0.60 (0.2-1.3) mg/dL AST 26 (14-36) U/L ALT 13 (0-35) U/L Alkaline Phosphatase 46 (38-126) U/L Troponin I (0.000-0.033) ng/mL NT-Pro-B Natriuret Pep (<300) pg/mL Serum Total Protein 6.0 L (6.3-8.2) g/dL Albumin 3.5 (3.5-5.0) g/dL Urine Color (Yellow) Urine Appearance (Clear) Urine pH (4.6-8.0) Ur Specific [place] (1.005-1.030) Urine Protein (Negative) Urine Glucose (UA) (Negative) mg/dL Urine Ketones (Negative) Urine Blood (Negative) Urine Nitrite (Negative) Urine Bilirubin (Negative) Urine Urobilinogen (0.2) mg/dL Ur Leukocyte Esterase (Negative) U Hyaline Cast (Auto) (0-2) /LPF Urine Microscopic RBC (0-5) /HPF Urine Microscopic WBC (0-5) /HPF Ur Epithelial Cells (None Seen) /HPF Urine Bacteria (None Seen) /HPF Urine Culture Reflexed (NO) - Progress Progress: re-examined Air Movement: good Progress Note: 03/30/24 15:22 My medical decision making and the assignment of moderate complexity to this patient's medical issue today is based on review of the patient's past medical history, review of the patient's medication list, reviewed patient drug allergy list, history present illness and physical findings on examination. The workup in this patient includes placement of an intravenous line, infusion of low rate crystalloid, CBC, CMP, urinalysis, twelve-lead EKG, troponin level, venous Doppler right lower extremity, D-dimer level, CT scan of the head. Differential diagnosis includes was not limited to anemia, dehydration, urinary tract infection, arrhythmia, electrolyte abnormalities, myocardial infarction, acute intracranial abnormality 03/30/24 17:07 I interpreted the patient's laboratory data results. Based on the laboratory da ta results, the patient does have mild anemia with a hemoglobin 10.2. No blood transfusions are necessary. The patient does have trace ketones in her urine but no urinary tract infection. There is evidence of an elevated D-dimer. This may be elevated secondary to postoperative procedure. However we will order a CT scan of the chest with contrast to evaluate for pulmonary embolus. The right lower extremity venous Doppler preliminary report was provided to me by the certified ophthalmic technologist. She states that this is negative for any deep venous thrombosis. 03/30/24 18:[address] scan of the chest with contrast was interpreted by the radiologist and I reviewed the impression. The impression states a few tiny nonobstructing pulmonary emboli in segmental branches of the right middle lobe, right lower lobe and left lower lobe. Blood Culture(s) Obtained: Yes Counseled pt/family regarding: lab results, diagnosis, rad results Medical Desision Making - Independent Historian Additional History obtained from: Family - Diagnostic Testing Diagnostic test were ordered, analyzed, and reviewed by me: Yes Radiological Interpretation: Reviewed by me, Teleradiologist Report - Risk of complications The pt has a mod risk of morbidity or mortality based on: Need for prescription drug management - Departure Departure Disposition: Home Clinical Impression: Shortness of breath, Weakness, Pulmonary emboli Condition: Stable Critical Care Time: No Referrals: ETHAN LUCAS NP [Primary Care Provider] - Follow up/PCP as directed Additional Instructions: Stop the Plavix. Take the Eliquis instead of the Plavix. Call your primary care provider and the prescriber of Plavix tomorrow morning, 03/31/2024 to make arrangements for follow-up appointment for further evaluation and management and to discuss what to do with your Plavix medication. Prescriptions: Apixaban [Eliquis] 10 mg PO BID #28 tablet
[2024-03-30 14:50] VITALS: TEMP 97.7
[2024-03-30 15:04] LABS: Absolute Neutrophil Ct (ANC) 2.85 x10^3/uL (1.56-6.13); BASOPHIL % 1.1 % (0.1-1.2); Basophil (Absolute #) 0.06 x10^3/uL (0.01-0.08); Eosinophil % 8.9 % (0.7-5.8); Eosinophil (Absolute #) 0.47 x10^3/uL (0.04-0.36); Hematocrit 32.3 % (34.1-44.9); Hemoglobin 10.2 g/dL (11.2-15.7); IMMATURE GRAN # 0.02 x10^3u/L (0.001-0.031); IMMATURE GRAN % 0.4 % (0.001-0.429); Lymphocyte (Absolute #) 1.44 x10^3/uL (1.18-3.74); Lymphocytes % 27.2 % (19.3-51.7); Mean Cell Volume 91.8 fL (79.4-94.8); Mean Corpuscular Hgb Concent. 31.6 g/dL (32.2-35.5); Monocyte (Absolute #) 0.46 x10^3/uL (0.24-0.86); Monocytes % 8.7 % (4.7-12.5); Neutrophil % 53.7 % (34.0-71.1); Platelet Count 251 x10^3/uL (182-369); Red Blood Count 3.52 x10^6/uL (3.93-5.22); Red Cell Distribution Width 14.4 % (11.7-14.4); White Blood Count 5.3 x10^3/uL (3.98-10.04)
[2024-03-30] MEDS ORDERED: Sodium Chloride 0.9% 1000 ML 1,000 ML ONE (15:13)
[2024-03-30] MEDS: Sodium Chloride 0.9% 1000 ML 1,000 ML IV SCH (15:13)
[2024-03-30 15:24] LABS: ALBUMIN 3.5 g/dL (3.5-5.0); ANION GAP 10.6 MEQ/L (5-15); BILIRUBIN,TOTAL 0.6 mg/dL (0.2-1.3); Calcium 8.6 mg/dL (8.4-10.2); Creatinine 1 0.77 mg/dL (0.52-1.04); EST GLOMERULAR FILTRATION RATE 79.9 ML/MIN; Potassium 4.5 mmol/L (3.5-5.1)
[2024-03-30 15:35] LABS: NT PRO BNPII 431 pg/mL (<300); TROPONIN < 0.012 ng/mL (0.000-0.033)
[2024-03-30 16:05] LABS: Appearance Clear (Clear); Bacteria None Seen /HPF (None Seen); Bilirubin Negative (Negative); Blood Negative (Negative); Epithelial Cells Rare /HPF (None Seen); Glucose, Urine Negative (Negative); Ketones Trace (Negative); Leukocyte Esterase Negative (Negative); Nitrite Negative (Negative); Protein,Urine Dip Trace (Negative); RBC 0-2 /HPF (0-5); Specific Gravity 1.025 (1.005-1.030); WBC 0-2 /HPF (0-5)
--- NOTE | 2024-03-30 16:29 | XRAY ---
Indication: Calf pain. Two-dimensional sonogram and color Doppler imaging major venous vessels right leg performed. Comparison: None No thrombus seen in the examined deep venous vessels right leg including greater saphenous vein. Veins demonstrate normal compressibility. Venous waveforms are normal with and without augmentation. Impression: Right leg negative for DVT.
--- NOTE | 2024-03-30 16:32 | XRAY ---
Indication: Weak and confused. Multiple contiguous axial images obtained through the head without contrast. Comparison: January 14, 2022 There is age-appropriate global atrophy with minimal periventricular degenerative micro-ischemia bilaterally. No acute intracranial hemorrhage, abnormal extra-axial fluid collection, or mass effect. Fourth ventricle is midline without hydrocephalus. Becker-white matter differentiation preserved. Bony calvarium intact with stable left occipital craniotomy. Visualized paranasal sinuses and mastoid air cells are clear. Impression: Nonacute senile brain.
[2024-03-30] MEDS: ELIQUIS 2.5 MG TABLET PO ONE (19:29)
[2024-03-30 19:33] VITALS: BP 144/76; PULSE 58; RESP 21; O2SAT 100
--- NOTE | 2024-03-31 08:38 | XRAY ---
Indication: Dyspnea on exertion. Elevated d-dimer. Status post hip surgery. Multiple contiguous axial images obtained through the chest using 80 cc Isovue 370 contrast and PE protocol. Comparison: None Good opacification pulmonary arteries including lobar and segmental branches. A few tiny nonoccluding pulmonary emboli seen in the segmental branches right lower lobe. Lesser tiny nonoccluding pulmonary emboli seen in the segmental branches right middle and left lower lobes. Heart borderline enlarged. Aorta is normal in course and caliber. A few tiny left hilar calcified nodes. Pathologic mediastinal/hilar lymphadenopathy. Lungs inflated and clear. Bony thorax intact with osteopenia and minimal/mild degenerative changes throughout the spine. Limited upper abdomen demonstrates fatty liver and previous cholecystectomy. Impression: 1. Tiny nonoccluding pulmonary emboli in segmental branches of the right middle, right lower, and left lower lobes. No distal infarct. 2. Incidental chronic bony findings, fatty liver, and old granulomatous disease.
== END 2024-03-30 19:45 | disposition home or self-care (01) ==
LOC: ED 14:24
DX: I26.99 Other pulmonary embolism without acute cor pulmonale (principal); R06.02 Shortness of breath; R53.1 Weakness; R42 Dizziness and giddiness; M79.661 Pain in right lower leg; E78.5 Hyperlipidemia, unspecified; I10 Essential (primary) hypertension; Z79.01 Long term (current) use of anticoagulants; Z79.899 Other long term (current) drug therapy
CPT/HCPCS: 36415; 70450; 71260; 80053; 81001; 83880; 84484; 85025; 85379; 93005; 93971; 99285; A9270-GY